=== PATIENT | female | born 1960 | race Caucasian/White ===

== ENCOUNTER → 2017-07-22 | Outpatient (CLI) | payer OTHER ==
[~2017-07-22] MED LIST: ALBUAER2 INH; DXY100 PO; PRED50TA PO
[2017-07-22 14:35] LABS: BLOOD UREA NITROGEN 20 mg/dl (7-18); BUN/CREATININE RATIO 18.8 (10-20); CALCIUM 8.9 mg/dl (8.5-10.1); CARBON DIOXIDE 25 mmol/L (21-32); CHLORIDE 107 mmol/L (98-107); CREATININE 1.06 mg/dl (0.60-1.20); GLUCOSE 86 mg/dl (70-99); POTASSIUM 4.5 mmol/L (3.5-5.1); SODIUM 140 mmol/L (136-145)
== END | disposition home or self-care (01) ==
LOC: C.LABPVFM 09:18
PROVIDERS: ATTEND Nurse Practitioner
DX: E03.9 Hypothyroidism, unspecified (principal)

== ENCOUNTER 2022-04-30 05:34 | Observation (INO) ==
[2022-04-30] MEDS ORDERED: NALOXONE HCL 0.4 MG/1 ML VIAL/CARP IV STA (05:42)
[2022-04-30] MEDS ORDERED: SODIUM CHLORIDE 0.9% 1000ML 1,000 ML IV SCH (05:45)
[2022-04-30 06:19] LABS: Hematocrit (blood only) 38.2 % (34.1-44.9); Hemoglobin 12.9 g/dl (12.0-16.0); Mean Corpuscular Hemoglobin 32.3 pg (25.0-34.0); Mean Corpuscular Hgb Conc 33.8 g/dL (32.0-36.0); Mean Corpuscular Volume 95.7 fL (80.0-100.0); RDW Coefficient of Variation 13.4 % (11.5-14.5); RDW Standard Deviation 47.4 fL (36.4-46.3); Red Blood Count 3.99 M/uL (3.93-5.22); White Blood Count 3.64 K/ul (4.8-10.8)
[2022-04-30 06:38] LABS: Mean Platelet Volume 13.2 fL (9.4-12.3); Platelet Count 141 K/uL (130-400)
[2022-04-30] MEDS ORDERED: ONDANSETRON INJ 2 MG/ML 2 ML VIAL IV STA (06:40)
[2022-04-30 06:51] LABS: Troponin I High Sensitivity 14.3 pg/ml (0-14)
[2022-04-30 06:52] LABS: Appearance Urine Cloudy (Clear); Bacteria Urine Automated 1+ (Negative); Bilirubin Urine 1+ (Negative); Blood Urine Negative (Negative); Color Urine Dark Yellow; Epithelial Cell Urine Auto >30 /lpf (0-5); Glucose Urine UA Negative (Negative); Ketones Urine Trace (Negative); Leukocyte Esterase Urine 1+ (Negative); Nitrite Urine Negative (Negative); Protein Urine 1+ (Negative); Specific Gravity Urine 1.017 (1.000-1.030); Urobilinogen Urine Negative (Negative)
[2022-04-30 06:58] LABS: Albumin Globulin Ratio 1.3 (0.9-2); Albumin Level 3.5 gm/dl (3.4-5.0); BUN Creatinine Ratio 13.6 (10-20); Bilirubin,Total 0.2 mg/dl (0.2-1.0); Calcium 8.1 mg/dl (8.5-10.1); Creatinine Clr Calc Pharmacy 42.7 ml/min; Est GFR (African American) 49.6 ml/min; Est GFR (Non-African American) 42.8 ml/min; Globulin 2.6 gm/dl (2.5-4.0); Magnesium 1.7 mg/dl (1.7-2.4); Potassium 3.7 mmol/L (3.5-5.1); Total Protein 6.1 gm/dl (6.0-8.3)
[2022-04-30 06:58] LABS: RBC Urine Automated 0-4 /hpf (0-4)
--- NOTE | 2022-04-30 06:58 | CT Scan Report ---
CT OF THE HEAD WITHOUT CONTRAST CLINICAL HISTORY: Altered mental status. COMPARISON STUDY: No previous studies for comparison. CT DOSE: 537.48 mGy.cm TECHNIQUE: Helical axial images of the head were obtained without IV contrast. Automated exposure con trol was utilized for the study. A dose lowering technique was utilized adhering to the principles o f ALARA. FINDINGS: No acute intracranial hemorrhage, midline shift or mass effect is present. White matter hyp odensities suggest small vessel disease. The ventricular system is unremarkable. The basal cisterns a re patent. No extra-axial collections are present. There are no findings to suggest acute dural sinus thrombosis or acute territorial infarct. No significant calvarial abnormalities are present. Visuali zed portions of the sinuses and mastoid air cells are clear. IMPRESSION: No acute intracranial findings. ACT 112: Negative or not required by law. Electronically signed by: Audie Galindo M.D. 04/30/2022 6:56 AM
--- NOTE | 2022-04-30 07:00 | XRay Report ---
XR chest 1V portable CLINICAL HISTORY: weakness TECHNIQUE: Single frontal radiograph of the chest was obtained. Comparison: Comparison is made to chest radiograph 08/18/2018 FINDINGS: No lines and tubes are seen. The cardiomediastinal silhouette is normal. The lungs are clear. No evid ence of pleural effusion or pneumothorax. Scoliosis is noted. IMPRESSION: No acute chest disease. ACT 112: Negative or not required by law. Electronically signed by: Thuan Salzaar M.D. 04/30/2022 6:59 AM
[2022-04-30 07:21] LABS: Basophils # (auto) 0.02 K/uL (0-0.2); Basophils % (auto) 0.5 %; Eosinophils # (auto) 0.02 K/uL (0-0.50); Eosinophils % (auto) 0.5 %; Immature Granulocytes # (auto) 0.01 K/uL (0.00-0.02); Immature Granulocytes % (auto) 0.3 %; Lymphocytes # (auto) 0.66 K/uL (1.2-3.4); Lymphocytes % (auto) 18.1 %; Neutrophils # (auto) 2.53 K/uL (1.4-6.5); Neutrophils % (auto) 69.6 %
[2022-04-30 07:27] LABS: Amphetamines+Metham, Urine Neg (Neg); Barbiturates, Urine Neg (Neg); Benzodiazepine, Urine Neg (Neg); Cocaine, Urine Neg (Neg); MDMA (Ecstacy), Urine Neg (Neg); Methadone, Urine Neg (Neg); Opiate, Urine Neg (Neg); Phencyclidine, Urine Neg (Neg)
--- NOTE | 2022-04-30 07:45 | History & Physical Report ---
Date of Service April 30, 2022 Assessment & Plan (1) Metabolic encephalopathy: Plan: Patient presented with decreased alertness altered mental status likely secondary to enteritis from COVID infection. Patient was given a liter of crystalloid in the emergency department she will be continued on IV fluids at least for another liter. Initially hypothermic supported by Reina gaviria. Patient does have an abnormal urinalysis on presentation this could be a urinary tract infection causing metabolic encephalopathy on top of COVID infection causing encephalopathy wait for urine culture (2) Lab test positive for detection of COVID-19 virus: Plan: Patient does not exhibit signs of COVID-pneumonia she however is hypoxic on presentation. She does have a significant smoking history of at least 40 pack years and chest x-ray changes consistent with likely COPD. We will initiate dexamethasone, and if hypoxia persistes will start remdesivir (3) Elevated troponin: Plan: Patient's troponin only mildly above the upper limits of normal EKGs without acute changes we will repeat high-sensitivity troponin and make further decisions based on that (4) Enteritis: Plan: Nausea vomiting diarrhea have resolved at this point time. If the diarrhea does occur we will do a stool PCR test for infectious etiologies although this likely may be viral in nature. 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 She is reportedly vomiting into a trash can. She reportedly had diarrhea throughout the day. Patient was brought to the emergency department where she was resuscitated. She was poorly altered on presentation however initial evaluation includes negative CT scan chest x-ray EKG. Temperature was low on presentation, serology only shows mild decrease in white count mild elevation of troponin and an abnormal urinalysis. Tox screen is pending. Patient is COVID-positive however she is not had any cough upper respiratory symptoms loss of taste or smell and she is only been having her GI issues at the present time Patient was responsive upon my interview. She says she is only been ill for 1 day. She works with the public but lives by herself. She has not been vaccinated for COVID. She does not have any health maintenance only takes thyroid medication and that is the only reason she sees her family doctor. Primary Care Provider: YAEL Edwards Allergies Allergy/AdvReac Type Severity Reaction Status Date / Time Penicillins Allergy Unknown Rash Verified 07/15/21 07:23 Cephalosporins AdvReac Unknown Rash Verified 07/15/21 07:23 Home Medications Medication Instructions Recorded Confirmed Type levothyroxine 125 mcg tablet 125 mcg PO DAILY 04/30/22 04/30/22 History Past Med/Surg History Medical History Anxiety Chronic low back pain Depression Elevated blood-pressure reading without diagnosis of hypertension Grief reaction Hypothyroid Primary hypothyroidism Umbilical hernia Surgical History History of bilateral tubal ligation History of umbilical hernia repair Status post proximal row carpectomy of wrist Family History Father Diabetes Kidney disease Mother Gallbladder disease Hypertension Denies family history of Ovarian cancer Prostate cancer Myocardial infarction Breast cancer Social History Smoking Status: Current every day smoker Tobacco Type: Cigarettes Cigarettes Per Day: half pack/day; Second Hand Exposure: No; Do You Dip or Chew Tobacco: No; Hx Alcohol Use: No Hx Substance Use: No Preferred Language: Kyrgyz Communication Ability: Effective Gift Shop 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 Required: No Beliefs That Will Affect Care: None marital status: Single Current Living Situation: Family Current Living Situation Comment: Daughter current occupational status: employed Other Information That Helps Us Care for You: No Feels Safe at Home: Yes Safety Concerns: Feels Safe At This Time Dental Care, Regularly: No Assistive Devices: Denture - Upper and Glasses Review of Systems Review of Systems: Moderate distress and fatigue no headache, no visual changes no speech or swallowing issues no chest pain, pressure or palpitations no shortness of breath, cough or wheezes no abdominal pain, has had nausea vomiting and diarrhea Denies dysuria, hematuria or frequency no focal joint pain or swelling no back pain, CVA tenderness or radicular pain no bruising, bleeding or rashes no focal signs of weakness or numbness or altered sensation no complaints of anxiety or depression.. Physical Exam Physical Exam: The patient appeared well nourished and normally developed. Vital signs as documented. Head exam is normocephalic atraumatic Neck is without JVD, thyromegaly, or carotid bruits. Lungs are clear to auscultation, no focal loss of breath sounds Cardiac exam, Rhythm is regular.. No murmurs, rubs or gallops. Abdominal exam reveals normal bowel sounds, soft non tender, no masses Extremities are nonedematous and both pedal pulses are present Neurologic exam is alert and oriented, no focal loss of strength or sensation Skin is without bruises or rashes Psychologically is without concerns for anxiety or depression.. Results & Data Results & Data ([facility]) Vital Signs (Past 12 Hours) Vital Signs Temp Pulse Pulse Resp BP BP Pulse Ox 04/30/22 07:20 52 L 18 98 04/30/22 07:15 147/78 H 04/30/22 07:15 52 L 14 97 04/30/22 07:10 56 L 15 100 04/30/22 07:00 52 L 19 98 04/30/22 07:00 149/79 H 04/30/22 06:50 52 L 19 97 04/30/22 06:45 52 L 17 98 04/30/22 06:45 143/73 H 04/30/22 06:43 53 L 18 134/75 98 04/30/22 05:57 96.8 F L 53 L 14 105/62 87 L 04/30/22 06:05 87 L 04/30/22 06:05 55 L 17 87 L O2 Del Method O2 Flow Rate 04/30/22 07:20 Nasal Cannula 2 04/30/22 07:15 04/30/22 07:15 Nasal Cannula 2 04/30/22 07:10 Nasal Cannula 2 04/30/22 07:00 Nasal Cannula 2 04/30/22 07:00 04/30/22 06:50 Nasal Cannula 4 04/30/22 06:45 Nasal Cannula 4 04/30/22 06:45 04/30/22 06:43 Nasal Cannula 3 04/30/22 05:57 Room Air 04/30/22 06:05 Room Air 0 04/30/22 06:05 Room Air Diagnostic Findings Chest X-Ray 04/30/22 05:41 XR chest 1V portable CLINICAL HISTORY: weakness TECHNIQUE: Single frontal radiograph of the chest was obtained. Comparison: Comparison is made to chest radiograph 08/18/2018 FINDINGS: No lines and tubes are seen. The cardiomediastinal silhouette is normal. The lungs are clear. No evidence of pleural effusion or pneumothorax. Scoliosis is noted. IMPRESSION: No acute chest disease. Electronically signed by: Thuan Salazar M.D. 04/30/2022 6:[address] 04/30/22 05:41 CT OF THE HEAD WITHOUT CONTRAST CLINICAL HISTORY: Altered mental status. COMPARISON STUDY: No previous studies for comparison. CT DOSE: 537.48 mGy.cm TECHNIQUE: Helical axial images of the head were obtained without IV contrast. Automated exposure control was utilized for the study. A dose lowering technique was utilized adhering to the principles of ALARA. FINDINGS: No acute intracranial hemorrhage, midline shift or mass effect is present. White matter hypodensities suggest small vessel disease. The ventricular system is unremarkable. The basal cisterns are patent. No extra- axial collections are present. There are no findings to suggest acute dural sinus thrombosis or acute territorial infarct. No significant calvarial abnormalities are present. Visualized portions of the sinuses and mastoid air cells are clear. IMPRESSION: No acute intracranial findings. Electronically signed by: Audie Galindo M.D. 04/30/2022 6:56 AM PG Care Time/CCT Total # of Minutes Spent Total Time Spent with Patient: Total time spent is greater than 50% in coordination of care (as documented) at patient's floor/unit and/or counseling patient: Coding Level of Care Code INT OBSERVATION CARE 70M LVL 3 Diagnoses Metabolic encephalopathy G93.41 Lab test positive for detection of COVID-19 virus U07.1 Elevated troponin R77.8 Enteritis K52.9 Primary hypothyroidism E03.9 DVT prophylaxis Z29.9
--- NOTE | 2022-04-30 07:51 | Emergency Department Note ---
Impression & Plan Unresponsive episode, Altered mental status, COVID-19 ED Provider Note CHIEF COMPLAINT: AMS, found unresponsive HISTORY OF PRESENT ILLNESS: This 61 yo female patient presents to the emergency department by EMS after being found unresponsive at work this morning. 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 The patient apparently had vomited and urinated. She states she has no close family members available, a daughter is questionably incarcerated. The patient is able to answer most questions. She denies any recent head injuries, fevers, visual changes. She has not had any chest pain or palpitations. Patient does smoke cigarettes but denies any alcohol or marijuana. REVIEW OF SYSTEMS: A review of systems was performed with positives and pertinent negatives listed in the history of present illness. 10 systems were reviewed and are otherwise negative. ALLERGIES: see below MEDICATIONS: see below PMH: see below SOCIAL HISTORY: see below DDx: Infection, dehydration, metabolic abnormality, hypo/hyperglycemia, electrolyte disturbance, anemia, hypoxia, cardiac sources, intracerebral event, toxicologic, neurologic, as well as other pathologies. PHYSICAL EXAM: Vital signs reviewed. General: Chronically ill-appearing 61-year-old female, in no significant distress. Appears older than stated age HEENT: No scleral icterus, PERRLA, neck supple. Atraumatic. Dry mucous membranes. Cardiovascular: Bradycardic but regular, no extra sounds Pulmonary: Clear to auscultation bilaterally, normal work of breathing. Abdomen: Soft, nontender, nondistended, positive bowel sounds. Musculoskeletal: Atraumatic, no peripheral edema. Neurologic: Patient is somnolent but arousable. Speech is clear but patient falls asleep quickly. Follows simple commands. Skin: Warm, dry, no rash EMERGENCY DEPARTMENT COURSE/MDM: This patient was evaluated and appeared to be in no significant distress. The patient required some supplemental nasal cannula oxygen. She was placed on the monitoring and evaluation advisor. Her mental status did seem to improve during her several hours in the emergency department. IV hydration was initiated and the patient was given 4 mg of IV Zofran and 0.4 mg of IV Narcan. CT imaging of the head was performed and is negative. Laboratory work is fairly reassuring with the exception of a positive COVID test. Urinalysis is likely contaminated and not infected. Urine tox screen is negative. Chest x-ray is consistent with COPD but no focal infiltrate is observ ed. Patient was placed under the [facility] temperature of 36.0 and she was discussed with hospitalist service will evaluate the patient for admission and further management. MONITORING: An order for cardiac monitoring was placed and the patient is noted to be in a sinus bradycardia at 52 beats per minute. RADIOLOGY: See below EKG: Sinus bradycardia at 52 bpm. 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 QTC is 457. No PVC, no PAC. DISPOSITION: Admission I have personally spent 30 minutes of critical care time in the direct management of this patient. This was a life/limb threatening event. This 30 minutes is in excess of all separately billable procedures. Past Med/Surg History Medical History Anxiety Chronic low back pain Depression Elevated blood-pressure reading without diagnosis of hypertension Grief reaction Hypothyroid Primary hypothyroidism Umbilical hernia Surgical History History of bilateral tubal ligation History of umbilical hernia repair Status post proximal row carpectomy of wrist Family History Father Diabetes Kidney disease Mother Gallbladder disease Hypertension Denies family history of Ovarian cancer Prostate cancer Myocardial infarction Breast cancer Social History Smoking Status: Current every day smoker Tobacco Type: Cigarettes Cigarettes Per Day: half pack/day; Second Hand Exposure: No; Hx Alcohol Use: No Hx Substance Use: No Preferred Language: [place] Communication Ability: Effective Strategic Marketing Manager Required: No Beliefs That Will Affect Care: None marital status: Single Current Living Situation: Family Current Living Situation Comment: Daughter current occupational status: employed How many Children do You have: 1 Feels Safe at Home: Yes Dental Care, Regularly: No Assistive Devices: None Allergies Allergies Allergy/AdvReac Type Severity Reaction Status Date / Time Penicillins Allergy Unknown Rash Verified 07/15/21 07:23 Cephalosporins AdvReac Unknown Rash Verified 07/15/21 07:23 Home Meds Home Medications Medication Instructions Recorded Confirmed levothyroxine 125 mcg tablet 125 mcg PO DAILY 04/30/22 04/30/22 Previous Rx's Medication Instructions Recorded ciprofloxacin HCl 500 mg tablet 500 mg PO BID #10 tabs 05/02/22 (Cipro) dexamethasone 6 mg tablet 6 mg PO DAILY #5 Tabs 05/02/22 Results & Data (ED) Vital Signs Vital Signs - 24 hr 04/30/22 06:05 04/30/22 06:05 04/30/22 05:57 Temperature 36.0 C L Temperature Source Rectal Pulse Rate 55 L 53 L Pulse Rate [Apical] Pulse Rhythm Regular Regular Pulse Rhythm [Apical] Pulse Strength Normal Pulse Strength [Apical] Respiratory Rate 17 14 Respiratory Effort / Characteristics Non-Labored Spontaneous Respiratory Depth Normal Respiratory Pattern Regular Blood Pressure 105/62 Blood Pressure [Left Arm] Blood Pressure Mean 76 Blood Pressure Mean [Left Arm] Blood Pressure Position Lying Blood Pressure Position [Left Arm] Pulse Oximetry 87 L 87 L 87 L Oxygen Delivery Method Room Air Room Air Room Air Oxygen Flow Rate 0 Sepsis Recent Fever Within 48 Hours No Sepsis New/Unexplained Change in Mental Status Yes Sepsis Action Taken by Nursing No Action Required Oxygen Flow Rate - Titration 4 Pulse Oximetry Post Tiitration 94 04/30/22 06:43 04/30/22 06:45 04/30/22 06:45 Temperature Temperature Source Pulse Rate 52 L Pulse Rate [Apical] 53 L Pulse Rhythm Pulse Rhythm [Apical] Regular Pulse Strength Pulse Strength [Apical] Normal Respiratory Rate 18 17 Respiratory Effort / Characteristics Non-Labored Spontaneous Respiratory Depth Normal Respiratory Pattern Regular Blood Pressure 143/73 H Blood Pressure [Left Arm] 134/75 Blood Pressure Mean 96 Blood Pressure Mean [Left Arm] 94 Blood Pressure Position Blood Pressure Position [Left Arm] Lying Pulse Oximetry 98 98 Oxygen Delivery Method Nasal Cannula Nasal Cannula Oxygen Flow Rate 3 4 Sepsis Recent Fever Within 48 Hours Sepsis New/Unexplained Change in Mental Status Sepsis Action Taken by Nursing Oxygen Flow Rate - Titration Pulse Oximetry Post Tiitration 04/30/22 06:50 04/30/22 07:00 04/30/22 07:00 Temperature Temperature Source Pulse Rate 52 L 52 L Pulse Rate [Apical] Pulse Rhythm Pulse Rhythm [Apical] Pulse Strength Pulse Strength [Apical] Respiratory Rate 19 19 Respiratory Effort / Characteristics Respiratory Depth Respiratory Pattern Blood Pressure 149/79 H Blood Pressure [Left Arm] Blood Pressure Mean 102 Blood Pressure Mean [Left Arm] Blood Pressure Position Blood Pressure Position [Left Arm] Pulse Oximetry 97 98 Oxygen Delivery Method Nasal Cannula Nasal Cannula Oxygen Flow Rate 4 2 Sepsis Recent Fever Within 48 Hours Sepsis New/Unexplained Change in Mental Status Sepsis Action Taken by Nursing Oxygen Flow Rate - Titration Pulse Oximetry Post Tiitration 04/30/22 07:10 04/30/22 07:15 04/30/22 07:15 Temperature Temperature Source Pulse Rate 56 L 52 L Pulse Rate [Apical] Pulse Rhythm Pulse Rhythm [Apical] Pulse Strength Pulse Strength [Apical] Respiratory Rate 15 14 Respiratory Effort / Characteristics Respiratory Depth Respiratory Pattern Blood Pressure 147/78 H Blood Pressure [Left Arm] Blood Pressure Mean 101 Blood Pressure Mean [Left Arm] Blood Pressure Position Blood Pressure Position [Left Arm] Pulse Oximetry 100 97 Oxygen Delivery Method Nasal Cannula Nasal Cannula Oxygen Flow Rate 2 2 Sepsis Recent Fever Within 48 Hours Sepsis New/Unexplained Change in Mental Status Sepsis Action Taken by Nursing Oxygen Flow Rate - Titration Pulse Oximetry Post Tiitration 04/30/22 07:20 Temperature Temperature Source Pulse Rate 52 L Pulse Rate [Apical] Pulse Rhythm Pulse Rhythm [Apical] Pulse Strength Pulse Strength [Apical] Respiratory Rate 18 Respiratory Effort / Characteristics Respiratory Depth Respiratory Pattern Blood Pressure Blood Pressure [Left Arm] Blood Pressure Mean Blood Pressure Mean [Left Arm] Blood Pressure Position Blood Pressure Position [Left Arm] Pulse Oximetry 98 Oxygen Delivery Method Nasal Cannula Oxygen Flow Rate 2 Sepsis Recent Fever Within 48 Hours Sepsis New/Unexplained Change in Mental Status Sepsis Action Taken by Nursing Oxygen Flow Rate - Titration Pulse Oximetry Post Tiitration Home Medications Current Medication List: was personally reviewed by me Laboratory Data Attestation: I reviewed the patient's lab results. Result diagrams: 05/02/22 06:09 05/02/22 06:09 Lab Results 04/30/22 04/30/22 04/30/22 Range/Units 05:52 05:56 05:56 WBC 3.64 L (4.8-10.8) K/ul RBC 3.99 (3.93-5.22) M/uL Hgb 12.9 (12.0-16.0) g/dl Hct 38.2 (34.1-44.9) % MCV 95.7 (80.0-100.0) fL MCH 32.3 (25.0-34.0) pg MCHC 33.8 (32.0-36.0) g/dL RDW Std Deviation 47.4 H (36.4-46.3) fL RDW Coeff of Lucy 13.4 (11.5-14.5) % Plt Count 141 (130-400) K/uL MPV 13.2 H (9.4-12.3) fL Immature Gran % (Auto) 0.3 % Neut % (Auto) 69.6 % Lymph % (Auto) 18.1 % [place] % (Auto) 11.0 % Eos % (Auto) 0.5 % Baso % (Auto) 0.5 % Neut # (Auto) 2.53 (1.4-6.5) K/uL Lymph # (Auto) 0.66 L (1.2-3.4) K/uL [place] # (Auto) 0.40 (0.24-0.82) K/uL Eos # (Auto) 0.02 (0-0.50) K/uL Baso # (Auto) 0.02 (0-0.2) K/uL Immature Gran # (Auto) 0.01 (0.00-0.02) K/uL Sodium 136 (136-145) mmol/L Potassium 3.7 (3.5-5.1) mmol/L Chloride 107 (98-107) mmol/L Carbon Dioxide 21 (21-32) mmol/L Anion Gap 8 (3-11) BUN 18 (6-23) mg/dl Creatinine 1.32 H (0.6-1.2) mg/dl Est Cr Clr Drug Dosing 42.7 ml/min Est GFR ( Amer) 49.6 ml/min Est GFR (Non-Af Amer) 42.8 ml/min BUN/Creatinine Ratio 13.6 (10-20) Glucose 126 H (70-99(Fasting)) mg/dl POC Glucose 104 H (70-99) mg/dl Calcium 8.1 L (8.5-10.1) mg/dl Magnesium 1.7 (1.7-2.4) mg/dl Total Bilirubin 0.2 (0.2-1.0) mg/dl AST 35 (13-39) U/L ALT 20 (7-52) U/L Alkaline Phosphatase 94 (34-104) U/L Troponin I High Sens 14.3 H (0-14) pg/ml Total Protein 6.1 (6.0-8.3) gm/dl Albumin 3.5 (3.4-5.0) gm/dl Globulin 2.6 (2.5-4.0) gm/dl Albumin/Globulin Ratio 1.3 (0.9-2) TSH (0.300-4.500) uIu/ml Urine Color Urine Appearance (Clear) Urine pH (4.5-7.5) Ur Specific [place] (1.000-1.030) Urine Protein (Negative) Urine Glucose (UA) (Negative) Urine Ketones (Negative) Urine Blood (Negative) Urine Nitrite (Negative) Urine Bilirubin (Negative) Urine Urobilinogen (Negative) Ur Leukocyte Esterase (Negative) Urine WBC (Auto) (0-5) /hpf Urine RBC (Auto) (0-4) /hpf U Hyaline Cast (Auto) (0-5) /lpf U Epithel Cells (Auto) (0-5) /lpf Urine Bacteria (Auto) (Negative) Ur Renal Epithelial Cell Urine Opiates Screen (Neg) Ur Methadone, Qual (Neg) Urine Barbiturates (Neg) Ur Phencyclidine (PCP) (Neg) U Amphetamin/Meth Scrn (Neg) MDMA (Ecstasy) Screen (Neg) U Benzodiazepines Scrn (Neg) Ur Cocaine Metabolite (Neg) U Marijuana (THC) Screen (Neg) SARS-CoV-2, RNA, NAAT (NEGATIVE) 04/30/22 04/30/22 04/30/22 Range/Units 05:56 06:27 06:27 WBC (4.8-10.8) K/ul RBC (3.93-5.22) M/uL Hgb (12.0-16.0) g/dl Hct (34.1-44.9) % MCV (80.0-100.0) fL MCH (25.0-34.0) pg MCHC (32.0-36.0) g/dL RDW Std Deviation (36.4-46.3) fL RDW Coeff of Lucy (11.5-14.5) % Plt Count (130-400) K/uL MPV (9.4-12.3) fL Immature Gran % (Auto) % Neut % (Auto) % Lymph % (Auto) % [place] % (Auto) % Eos % (Auto) % Baso % (Auto) % Neut # (Auto) (1.4-6.5) K/uL Lymph # (Auto) (1.2-3.4) K/uL [place] # (Auto) (0.24-0.82) K/uL Eos # (Auto) (0-0.50) K/uL Baso # (Auto) (0-0.2) K/uL Immature Gran # (Auto) (0.00-0.02) K/uL Sodium (136-145) mmol/L Potassium (3.5-5.1) mmol/L Chloride (98-107) mmol/L Carbon Dioxide (21-32) mmol/L Anion Gap (3-11) BUN (6-23) mg/dl Creatinine (0.6-1.2) mg/dl Est Cr Clr Drug Dosing ml/min Est GFR ( Amer) ml/min Est GFR (Non-Af Amer) ml/min BUN/Creatinine Ratio (10-20) Glucose (70-99(Fasting)) mg/dl POC Glucose (70-99) mg/dl Calcium (8.5-10.1) mg/dl Magnesium (1.7-2.4) mg/dl Total Bilirubin (0.2-1.0) mg/dl AST (13-39) U/L ALT (7-52) U/L Alkaline Phosphatase (34-104) U/L Troponin I High Sens (0-14) pg/ml Total Protein (6.0-8.3) gm/dl Albumin (3.4-5.0) gm/dl Globulin (2.5-4.0) gm/dl Albumin/Globulin Ratio (0.9-2) TSH 0.305 (0.300-4.500) uIu/ml Urine Color Dark Yellow Urine Appearance Cloudy A (Clear) Urine pH 6.0 (4.5-7.5) Ur Specific [place] 1.017 (1.000-1.030) Urine Protein 1+ H (Negative) Urine Glucose (UA) Negative (Negative) Urine Ketones Trace H (Negative) Urine Blood Negative (Negative) Urine Nitrite Negative (Negative) Urine Bilirubin 1+ H (Negative) Urine Urobilinogen Negative (Negative) Ur Leukocyte Esterase 1+ H (Negative) Urine WBC (Auto) 10-30 H (0-5) /hpf Urine RBC (Auto) 0-4 (0-4) /hpf U Hyaline Cast (Auto) 1-5 (0-5) /lpf U Epithel Cells (Auto) >30 H (0-5) /lpf Urine Bacteria (Auto) 1+ H (Negative) Ur Renal Epithelial Cell Not Reportable Urine Opiates Screen Neg (Neg) Ur Methadone, Qual Neg (Neg) Urine Barbiturates Neg (Neg) Ur Phencyclidine (PCP) Neg (Neg) U Amphetamin/Meth Scrn Neg (Neg) MDMA (Ecstasy) Screen Neg (Neg) U Benzodiazepines Scrn Neg (Neg) Ur Cocaine Metabolite Neg (Neg) U Marijuana (THC) Screen Neg (Neg) SARS-CoV-2, RNA, NAAT (NEGATIVE) 04/30/22 Range/Units 06:35 WBC (4.8-10.8) K/ul RBC (3.93-5.22) M/uL Hgb (12.0-16.0) g/dl Hct (34.1-44.9) % MCV (80.0-100.0) fL MCH (25.0-34.0) pg MCHC (32.0-36.0) g/dL RDW Std Deviation (36.4-46.3) fL RDW Coeff of Lucy (11.5-14.5) % Plt Count (130-400) K/uL MPV (9.4-12.3) fL Immature Gran % (Auto) % Neut % (Auto) % Lymph % (Auto) % [place] % (Auto) % Eos % (Auto) % Baso % (Auto) % Neut # (Auto) (1.4-6.5) K/uL Lymph # (Auto) (1.2-3.4) K/uL [place] # (Auto) (0.24-0.82) K/uL Eos # (Auto) (0-0.50) K/uL Baso # (Auto) (0-0.2) K/uL Immature Gran # (Auto) (0.00-0.02) K/uL Sodium (136-145) mmol/L Potassium (3.5-5.1) mmol/L Chloride (98-107) mmol/L Carbon Dioxide (21-32) mmol/L Anion Gap (3-11) BUN (6-23) mg/dl Creatinine (0.6-1.2) mg/dl Est Cr Clr Drug Dosing ml/min Est GFR ( Amer) ml/min Est GFR (Non-Af Amer) ml/min BUN/Creatinine Ratio (10-20) Glucose (70-99(Fasting)) mg/dl POC Glucose (70-99) mg/dl Calcium (8.5-10.1) mg/dl Magnesium (1.7-2.4) mg/dl Total Bilirubin (0.2-1.0) mg/dl AST (13-39) U/L ALT (7-52) U/L Alkaline Phosphatase (34-104) U/L Troponin I High Sens (0-14) pg/ml Total Protein (6.0-8.3) gm/dl Albumin (3.4-5.0) gm/dl Globulin (2.5-4.0) gm/dl Albumin/Globulin Ratio (0.9-2) TSH (0.300-4.500) uIu/ml Urine Color Urine Appearance (Clear) Urine pH (4.5-7.5) Ur Specific [place] (1.000-1.030) Urine Protein (Negative) Urine Glucose (UA) (Negative) Urine Ketones (Negative) Urine Blood (Negative) Urine Nitrite (Negative) Urine Bilirubin (Negative) Urine Urobilinogen (Negative) Ur Leukocyte Esterase (Negative) Urine WBC (Auto) (0-5) /hpf Urine RBC (Auto) (0-4) /hpf U Hyaline Cast (Auto) (0-5) /lpf U Epithel Cells (Auto) (0-5) /lpf Urine Bacteria (Auto) (Negative) Ur Renal Epithelial Cell Urine Opiates Screen (Neg) Ur Methadone, Qual (Neg) Urine Barbiturates (Neg) Ur Phencyclidine (PCP) (Neg) U Amphetamin/Meth Scrn (Neg) MDMA (Ecstasy) Screen (Neg) U Benzodiazepines Scrn (Neg) Ur Cocaine Metabolite (Neg) U Marijuana (THC) Screen (Neg) SARS-CoV-2, RNA, NAAT POSITIVE A* (NEGATIVE) Administered Medications Discontinued Medications Enoxaparin Sodium (Enoxaparin Inj 40 Mg/0.4 Ml Syr) 40 mg SQ Q24H LEONARDO Stop: 05/30/22 09:02 Last Admin: 05/02/22 09:30 Dose: 40 mg Documented By: Admin: 05/01/22 10:48 Dose: 40 mg Documented By: Admin: 04/30/22 10:55 Dose: 40 mg Documented By: BRITTANIE Sodium Chloride (Nss 1000ml) 1,000 mls @ 999 mls/hr IV .Q1H1M LEONARDO Stop: 04/30/22 06:45 Last Infusion: 04/30/22 08:04 Dose: 0 mls/hr Documented By: Admin: 04/30/22 06:28 Dose: 999 mls/hr Documented By: RANULFO Dexamethasone 6 mg/ Syringe 1.5 mls @ 1 mls/min IV Q24H LEONARDO Stop: 05/30/22 09:02 Last Admin: 05/02/22 09:30 Dose: 1 mls/min Documented By: Admin: 05/01/22 10:08 Dose: 1 mls/min Documented By: Admin: 04/30/22 10:09 Dose: 1 mls/min Documented By: BRITTANIE Parenteral Electrolytes (Normosol-R) 1,000 mls @ 100 mls/hr IV .Q10H LEONARDO Stop: 04/30/22 19:59 Last Infusion: 04/30/22 20:45 Dose: 0 mls/hr Documented By: Admin: 04/30/22 10:09 Dose: 100 mls/hr Documented By: BRITTANIE Magnesium Sulfate/Dextrose (Magnesium Sulfate / D5w) 1 gm in 100 mls @ 50 mls/hr IV Q2H LEONARDO Stop: 05/01/22 12:14 Last Infusion: 05/01/22 14:33 Dose: 0 mls/hr Documented By: Admin: 05/01/22 12:10 Dose: 50 mls/hr Documented By: Infusion: 05/01/22 12:10 Dose: 50 mls/hr Documented By: Admin: 05/01/22 10:14 Dose: 50 mls/hr Documented By: QUINCY Ciprofloxacin (Cipro / D5w) 400 mg in 200 mls @ 100 mls/hr IV Q12H LEONARDO; Protocol Stop: 05/06/22 08:59 Last Infusion: 05/02/22 11:42 Dose: 0 mls/hr Documented By: Admin: 05/02/22 09:42 Dose: 100 mls/hr Documented By: Infusion: 05/01/22 22:10 Dose: 0 mls/hr Documented By: Admin: 05/01/22 20:08 Dose: 100 mls/hr Documented By: Infusion: 05/01/22 12:42 Dose: 0 mls/hr Documented By: Admin: 05/01/22 10:11 Dose: 100 mls/hr Documented By: QUINCY Levothyroxine Sodium (Levothyroxine Sodium 125 Mcg Tablet) 125 mcg PO DAILYBB LEONARDO Stop: 05/30/22 09:59 Last Admin: 05/02/22 05:28 Dose: 125 mcg Documented By: Admin: 05/01/22 06:14 Dose: 125 mcg Documented By: Admin: 04/30/22 10:43 Dose: Not Given Documented By: BRITTANIE Naloxone HCl (Naloxone Hcl 0.4 Mg/1 Ml Vial/Carp) 0.4 mg IV NOW STA Stop: 04/30/22 05:43 Last Admin: 04/30/22 06:28 Dose: 0.4 mg Documented By: RANULFO Ondansetron HCl (Ondansetron Inj 2 Mg/Ml 2 Ml Vial) 4 mg IV NOW STA Stop: 04/30/22 06:41 Last Admin: 04/30/22 06:47 Dose: 4 mg Documented By: RANULFO Imaging Data Radiologist's Impression: Chest X-Ray 04/30/22 05:41 XR chest 1V portable CLINICAL HISTORY: weakness TECHNIQUE: Single frontal radiograph of the chest was obtained. Comparison: Comparison is made to chest radiograph 08/18/2018 FINDINGS: No lines and tubes are seen. The cardiomediastinal silhouette is normal. The lungs are clear. No evidence of pleural effusion or pneumothorax. Scoliosis is n oted. IMPRESSION: No acute chest disease. ACT 112: Negative or not required by law. Electronically signed by: Thuan Salazar M.D. 04/30/2022 6:[address] 04/30/22 05:41 CT OF THE HEAD WITHOUT CONTRAST CLINICAL HISTORY: Altered mental status. COMPARISON STUDY: No previous studies for comparison. CT DOSE: 537.48 mGy.cm TECHNIQUE: Helical axial images of the head were obtained without IV contrast. Automated exposure control was utilized for the study. A dose lowering technique was utilized adhering to the principles of ALARA. FINDINGS: No acute intracranial hemorrhage, midline shift or mass effect is present. White matter hypodensities suggest small vessel disease. The ventricular system is unremarkable. The basal cisterns are patent. No extra- axial collections are present. There are no findings to suggest acute dural sinus thrombosis or acute territorial infarct. No significant calvarial abnormalities are present. Visualized portions of the sinuses and mastoid air cells are clear. IMPRESSION: No acute intracranial findings. ACT 112: Negative or not required by law. Electronically signed by: Audie Galindo M.D. 04/30/2022 6:56 AM Blood Pressure Blood Pressure Findings: Elevated blood pressure Blood Pressure Disposition: further management by hospitalist Discharge Plan Visit Data Chief Complaint: Unresponsive Stated Complaint: HYPERTENSION/UNRESPONSIVE/INCONTINENT ED Provider: Elda Melgar Discharge Problem: Unresponsive episode, Altered mental status, COVID-19 Patient Disposition: Admitted As Inpatient Condition: Fair Discharge Instructions Interventions: ED Discharge Assessment Last Done: 04/30/22 08:12
[2022-04-30] MEDS ORDERED: ONDANSETRON INJ 2 MG/ML 2 ML VIAL IV PRN (09:03)
[2022-04-30] MEDS ORDERED: ACETAMINOPHEN 500 MG TAB PO PRN (09:03)
[2022-04-30] MEDS ORDERED: NORMOSOL-R 1,000 ML IV SCH (10:00)
[2022-04-30] MEDS: dexAMETHasone 6 MG in SYRINGE 0 ML IV SCH (10:09)
[2022-04-30] MEDS: LEVOTHYROXINE SODIUM 125 MCG TABLET PO SCH (10:43)
[2022-04-30] MEDS: ENOXAPARIN INJ 40 MG/0.4 ML SYR SQ SCH (10:55)
--- NOTE | 2022-04-30 16:38 | Electrocardiogram Report ---
Test Reason : Blood Pressure : / mmHG Vent. Rate : 052 BPM Atrial Rate : 052 BPM P-R Int : 160 ms QRS Dur : 106 ms QT Int : 492 ms P-R-T Axes : 078 076 051 degrees QTc Int : 457 ms Sinus bradycardia Nondiagnostic inferior Q waves Abnormal ECG When compared with ECG of 18-AUG-2018 13:56, No significant change was found Confirmed by Ambrose Mays ([id number]) on 04/30/2022 4:38:03 PM Referred By: REFERRED SELF Confirmed By:Ambrose Mays
[2022-05-01] MEDS: LEVOTHYROXINE SODIUM 125 MCG TABLET PO SCH (06:14)
[2022-05-01 07:40] LABS: Anion Gap 4 (3-11); BUN Creatinine Ratio 18.1 (10-20); Blood Urea Nitrogen 15 mg/dl (6-23); C Reactive Protein < 0.50 mg/dl (0-0.5); Calcium 8.2 mg/dl (8.5-10.1); Carbon Dioxide 25 mmol/L (21-32); Chloride 107 mmol/L (98-107); Creatinine Clr Calc Pharmacy 62.4 ml/min; Glucose 84 mg/dl (70-99(Fasting)); Magnesium 1.6 mg/dl (1.7-2.4); Potassium 4.5 mmol/L (3.5-5.1); Sodium 136 mmol/L (136-145)
[2022-05-01 07:49] LABS: Hematocrit (blood only) 38.3 % (34.1-44.9); Hemoglobin 12.8 g/dl (12.0-16.0); Mean Corpuscular Hemoglobin 31.8 pg (25.0-34.0); Mean Corpuscular Hgb Conc 33.4 g/dL (32.0-36.0); RDW Coefficient of Variation 13.5 % (11.5-14.5); Red Blood Count 4.03 M/uL (3.93-5.22); White Blood Count 3.85 K/ul (4.8-10.8)
[2022-05-01 07:55] LABS: Mean Platelet Volume 13.5 fL (9.4-12.3); Platelet Count 142 K/uL (130-400)
--- NOTE | 2022-05-01 08:13 | Hospitalist Progress Note ---
Date of Service May 01, 2022 Assessment & Plan (1) Metabolic encephalopathy: Plan: Patient presented with decreased alertness altered mental status likely secondary to enteritis from COVID infection. volume resusitated in ER. Initially hypothermic supported by Reina gaviria. Patient urinalysis gram negative >100,000, causing metabolic encephalopathy on top of COVID infection causing encephalopathy (2) Lab test positive for detection of COVID-19 virus: Plan: Patient does not exhibit signs of COVID-pneumonia she however is hypoxic on presentation. She does have a significant smoking history of at least 40 pack years and chest x-ray changes consistent with likely COPD. did initiate dexamethasone, no further hypoxia and did not start remdesivir (3) Elevated troponin: Plan: Patient's troponin only mildly above the upper limits of normal EKGs without acute changes repeat high-sensitivity troponin normal (4) Enteritis: Plan: Nausea vomiting diarrhea have resolved at this point time. If the diarrhea does occur we will do a stool PCR test for infectious etiologies although this likely may be viral in nature. Supportive care (5) Primary hypothyroidism: Plan: Continue her home Synthroid, TSH check on presentation was at the lower limits of normal (6) DVT prophylaxis: Plan: Enoxaparin for DVT prevention Admission and Anticipated Discharge Date Admission Date: April 30, 2022 Subjective pt feels improved still with extreme fatigue, some dysuria corroborates her concurrent UTI Review of Systems Review of Systems: lessening distress and fatigue no headache, no visual changes no speech or swallowing issues no chest pain, pressure or palpitations no shortness of breath, cough or wheezes no abdominal pain, no additional nausea vomiting or diarrhea no c/o dysuria, no hematuria or frequency no focal joint pain or swelling no back pain, CVA tenderness or radicular pain no bruising, bleeding or rashes no focal signs of weakness or numbness or altered sensation no complaints of anxiety or depression.. Physical Exam Physical Exam: The patient appeared well nourished and normally developed. she appears fatigued and tired Vital signs as documented. Head exam is normocephalic atraumatic Neck is without JVD, thyromegaly, or carotid bruits. Lungs are clear to auscultation, no focal loss of breath sounds Cardiac exam, Rhythm is regular.. No murmurs, rubs or gallops. Abdominal exam reveals normal bowel sounds, soft non tender, no masses Extremities are nonedematous and both pedal pulses are present Neurologic exam is alert and oriented, no focal loss of strength or sensation Skin is without bruises or rashes Psychologically is without concerns for anxiety or depression.. Results & Data Results & Data ([facility]) Vital Signs (Past 12 Hours) Vital Signs Temp Pulse Pulse Resp BP Pulse Ox O2 Del Method 05/01/22 03:57 97.7 F 49 L 18 164/82 H 100 Nasal Cannula 05/01/22 03:48 55 L 04/30/22 23:49 97.9 F 52 L 18 157/90 H 97 Nasal Cannula PG Care Time/CCT Total # of Minutes Spent Total Time Spent with Patient: Total time spent is greater than 50% in coordination of care (as documented) at patient's floor/unit and/or counseling patient: Coding Level of Care Code 04135 Subseq Hosp Care Lvl 3 Diagnoses Metabolic encephalopathy G93.41 Lab test positive for detection of COVID-19 virus U07.1 Elevated troponin R77.8 Enteritis K52.9 Primary hypothyroidism E03.9 DVT prophylaxis Z29.9
[2022-05-01] MEDS: dexAMETHasone 6 MG in SYRINGE 0 ML IV SCH (10:08)
[2022-05-01] MEDS: CIPROFLOXACIN / D5W 400 MG/200 ML BAG IV SCH ×2 (10:11→20:08)
[2022-05-01] MEDS: MAGNESIUM SULFATE / D5W 1 GM/100 ML BAG IV SCH ×2 (10:14→12:10)
[2022-05-01] MEDS: ENOXAPARIN INJ 40 MG/0.4 ML SYR SQ SCH (10:48)
[2022-05-02] MEDS: LEVOTHYROXINE SODIUM 125 MCG TABLET PO SCH (05:28)
[2022-05-02 06:58] LABS: Hematocrit (blood only) 38.9 % (34.1-44.9); Hemoglobin 13.3 g/dl (12.0-16.0); Mean Corpuscular Hgb Conc 34.2 g/dL (32.0-36.0); Mean Corpuscular Volume 93.5 fL (80.0-100.0); RDW Coefficient of Variation 13.2 % (11.5-14.5); RDW Standard Deviation 45.4 fL (36.4-46.3); Red Blood Count 4.16 M/uL (3.93-5.22)
[2022-05-02 07:05] LABS: Mean Platelet Volume 13.7 fL (9.4-12.3); Platelet Count 135 K/uL (130-400)
[2022-05-02 07:17] LABS: BUN Creatinine Ratio 17.3 (10-20); Calcium 8.4 mg/dl (8.5-10.1); Est GFR (African American) 89.6 ml/min; Est GFR (Non-African American) 77.3 ml/min; Magnesium 1.7 mg/dl (1.7-2.4); Potassium 4.4 mmol/L (3.5-5.1)
[2022-05-02] MEDS: dexAMETHasone 6 MG in SYRINGE 0 ML IV SCH (09:30)
[2022-05-02] MEDS: ENOXAPARIN INJ 40 MG/0.4 ML SYR SQ SCH (09:30)
[2022-05-02] MEDS: CIPROFLOXACIN / D5W 400 MG/200 ML BAG IV SCH (09:42)
--- NOTE | 2022-05-02 18:20 | Discharge Summary ---
Date of Service May 02, 2022 Principal Diagnosis covid infection with enteritis urinary tract infection Discharge Exam The patient appeared stable Vital signs as documented. Lungs are clear to auscultation and appear unlabored Cardiac exam, Rhythm is regular.. No murmurs, rubs or gallops. Abdominal exam reveals normal bowel sounds, soft non tender, no masses Extremities are nonedematous and both pedal pulses are normal. Neurologic exam is alert and oriented, no focal loss of strength or sensation Skin is without bruises or rashes Psychologically is without concerns for anxiety or depression. Discharge Data Allergies Allergy/AdvReac Type Severity Reaction Status Date / Time Penicillins Allergy Unknown Rash Verified 07/15/21 07:23 Cephalosporins AdvReac Unknown Rash Verified 07/15/21 07:23 Consultations 04/30/22 08:05 ED Decision to Admit Stat Ordered Studies 04/30/22 05:41 CT head/brain wo con Stat Hospital Course (1) Metabolic encephalopathy: Patient presented with decreased alertness altered mental status likely secondary to enteritis from COVID infection. volume resusitated in ER. Initially hypothermic supported by Reina gaviria. all symptoms resolved except fatigue Patient urinalysis E Coli >100,000, causing metabolic encephalopathy on top of COVID infection causing encephalopathy (2) Lab test positive for detection of COVID-19 virus: Patient does not exhibit signs of COVID-pneumonia she however is hypoxic on presentation. She does have a significant smoking history of at least 40 pack years and chest x-ray changes consistent with likely COPD. did initiate dexamethasone, will dc on Rx no further hypoxia and did not start remdesivir (3) Elevated troponin: Patient's troponin only mildly above the upper limits of normal EKGs without acute changes repeat high-sensitivity troponin normal (4) Enteritis: Nausea vomiting diarrhea have resolved at this point time. (5) Primary hypothyroidism: Continue her home Synthroid, TSH check on presentation was at the lower limits of normal Total Time Total Time Spent Total Time Spent (In Minutes): It required greater than 30 minutes to prepare this patient for discharge Discharge Plan Discharge Items Patient Disposition: Home - Self-Care Reason For Visit: ENCEPHALOPATHY Discharge Diagnosis: covid infection E Coli UTI Condition on Discharge: Fair Activity: Per Instructions section Activity Comment: Plenty of rest Non-emergency contact: Primary Care Provider Call non-emergency contact if: your symptoms worsen Follow-up/Referrals: Mary Valdes CRNP [Primary Care Provider] - Diet: Regular Addtl Attending Provider Instructions: You have been diagnosed with covid infection, it would be recommended that you quarantine yourself for 10 days from your first test or first symptoms, and if at the 10th day you have no symptoms the you can come off quarantine but use common sense precautions. Quarantine means attempting to stay away from people who have not had an active covid infection in the past, and if you have to be around others to wear a mask even if you are indoors, do not share a room to sleep in with others until you are out of quarantine. If you still have symptoms at the 10th day, continue to quarantine until you are symptom free for 48 hours Pending Studies at Discharge: No Stand-Alone Forms: [facility], Smoking Cessation Medications and DC Order Prescriptions: New ciprofloxacin HCl [Cipro] 500 mg tablet 500 mg PO BID Qty: 10 0RF dexamethasone 6 mg tablet 6 mg PO DAILY Qty: 5 0RF Continued levothyroxine 125 mcg tablet 125 mcg PO DAILY Rx Instructions: TAKE 1 TABLET DAILY DIRECTED. Discharge Orders: Discharge Order (Routine); Ordered 05/02/22 Ordered By: Joe Laws Admission Data Admit Date/Time: 04/30/22 07:49 Attending Provider: Joe Laws Admit Provider: Joe Laws Primary Care Provider: Mary Valdes Other Providers: Joe Laws Other Interventions: Discharge Summary Assessment (RN) Last Done: 05/02/22 13:05 Coding Level of Care Code D/C DAY MANAGEMENT >30 MINS Diagnoses Metabolic encephalopathy G93.41 Lab test positive for detection of COVID-19 virus U07.1 Elevated troponin R77.8 Enteritis K52.9 Primary hypothyroidism E03.9
== END 2022-05-02 15:00 | disposition home or self-care (01) ==
LOC: 2S 05:34 → ED 05:34 → 2S 08:12

== ENCOUNTER 2024-11-30 17:21 | Inpatient (IN) ==
--- NOTE | 2024-11-30 17:26 | Emergency Department Note ---
Impression & Plan Syncope Admission ED Provider Note HPI: History obtained from patient and EMS. The patient is a 64-year-old female who presents the emergency department after an apparent syncopal event. 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 Patient states she bent over when she got into the building to plug something in and she fell and hit the top of her head. Patient states that she did not lose consciousness but when she stood up she felt dizzy. Patient states she then went and sat down in a chair and apparently had an episode of syncope. Patient states she did not fall out of the chair when she had the syncopal event. She states she woke up and 3 ladies were helping her and she was still sitting in the chair. No seizure-like activity was noted per EMS, EMS was contacted by staff at the [facility] and the patient was brought to the ER for assessment. On arrival here to the ED the patient is alert, she states she feels lightheaded but she is otherwise hemodynamically stable, she is saturating well on room air. Patient denies any chest pain or shortness of breath. Patient does not have any obvious focal deficits on arrival. ROS: - Per HPI Differential Diagnosis: Vasovagal event, stroke, intracranial hemorrhage, arrhythmia to include SVT, high degree heart block, ventricular tachycardia, ACS, PE, amongst other potential pathologies. *Outpatient medications and allergy history reviewed. PE: General: Alert HEENT: Normocephalic, trachea midline Eyes: Extraocular eye movement is intact, no scleral erythema Pulmonary: Clear to auscultation bilaterally, no wheezing Cardio: Regular rate and rhythm GI: Abdomen is soft to palpation : No suprapubic tenderness MSK: No evidence of trauma or malformation of the extremities, no edema Skin: No evidence of rash Neuro: Alert, no focal deficits Psychiatric: Cooperative INDEPENDENT INTERPRETATIONS: youth nutritional monitor: (As interpreted by myself): - An order was placed for continuous cardiac monitoring - Patient was noted to be in sinus rhythm with a rate of 62 EKG: (As interpreted by myself): Rate: 58 Rhythm: Sinus bradycardia Intervals: Within normal limits ST changes: No ST elevation Time: 1724 Chest x-ray: (As interpreted by myself): No acute disease Interventions provided in ED: -IV fluid bolus Medical Decision Making: IV was established and lab work obtained, patient was placed on laboratory monitor. Lab work shows no leukocytosis, hemoglobin is normal, platelet count is normal, CMP does not show any evidence of any critical findings. Troponin is mildly elevated at 18.1, TSH is low and free T4 is slightly elevated at 1.89. CT imaging of the head with angiography was obtained and there is no evidence of any large vessel occlusion/stroke. CT imaging of the chest does not show any evidence of PE. CT imaging of the abdomen and pelvis was suggestive of possible splenic injury. On my reevaluation of the patient she does not have any tenderness in the left upper quadrant, she states that when she fell originally and hit her head she thinks she might of fallen also on her left side. Given this, I did recommend that I touch base with the trauma facility and the patient stated that that was fine but she did not want to be transferred under any circumstances. I explained the risk of this to the patient as we do not have trauma surgery at this facility, and she expressed an understanding and stated "I'm not too worried about it". I did discuss the patient's presentation and CT imaging results with the on-call trauma surgeon at [facility], Dr. Miles. She recommended at this point that if the patient was going to stay at our facility that we obtain repeat H&H every 6 hours or in the morning, patient would be made n.p.o., and otherwise observation would be all that was necessary at this time given the patient's hemodynamic stability with normal hemoglobin and questionable splenic injury and CT imaging further interpreting radiologist. I discussed all of this with the patient, she is in agreement for admission for further management of syncopal event with mildly elevated troponin. General surgery was consulted and will follow with the patient following my discussion with the midlevel provider, Sulma Miller PA-C, who staffed the case with Dr. Manriquez of general surgery. Case was discussed with the on-call hospitalist for [facility], Dr. Cavazos, the patient was placed for admission in stable condition. Consultants/Discussions held with other healthcare providers: -General Surgery, Dr. Manriquez -Trauma surgery at [facility], Dr. Miles -Hospitalist, Dr. Cavazos Disposition discussion held by myself with: -Patient Diagnosis: 1. Syncopal event, acute, nonspecific 2. Mechanical fall, acute 3. Closed head injury, acute 4. Possible splenic injury on CT imaging of the abdomen/pelvis, acute 5. Elevated high-sensitivity troponin, acute, mild Disposition: Admission Chino Herrera DO Emergency Medicine Past Med/Surg History Problem List (Updated 11/30/24 @ 22:40 by Chino Herrera DO) Syncope (Acute) Splenic laceration Elevated creatine phosphokinase level Palpitations (Acute) Primary hypothyroidism (Chronic) Elevated blood-pressure reading without diagnosis of hypertension (Acute) Depression (Acute) Chronic low back pain (Acute) Anxiety (Chronic) Medical History Umbilical hernia Hypothyroid Surgical History Status post proximal row carpectomy of wrist History of umbilical hernia repair History of bilateral tubal ligation Family History Father Diabetes Kidney disease Mother Gallbladder disease Hypertension Denies family history of Ovarian cancer Prostate cancer Myocardial infarction Breast cancer Social History Smoking Status: Current every day smoker Tobacco Type: Cigarettes Age Started Using Tobacco: 16; Cigarettes Per Day: half pack/day; Second Hand Exposure: No; Do You Dip or Chew Tobacco: No; Hx Alcohol Use: No Hx Substance Use: No Preferred Language: German Communication Ability: Effective Repeat Chief Required: No Beliefs That Will Affect Care: None marital status: Single Current Living Situation: Family Current Living Situation Comment: Daughter current occupational status: employed current occupation: working [employer] How many Children do You have: 1 Feels Safe at Home: Yes Childhood Exposure to Second-Hand Smoke: Yes Diet: regular caffeine: No Dental Care, Regularly: No Physical Activity Frequency: Daily Seatbelt Use: always Sunscreen Use: Yes (sometimes) Assistive Devices: None Allergies Allergies Allergy/AdvReac Type Severity Reaction Status Date / Time Penicillins Allergy Unknown Rash Verified 02/22/24 07:58 Cephalosporins AdvReac Unknown Rash Verified 02/22/24 07:58 Home Meds Previous Rx's Medication Instructions Recorded levothyroxine 125 mcg tablet 125 mcg PO DAILY #30 tabs 11/08/24 Results & Data (ED) Vital Signs Vital Signs - 24 hr 11/30/24 17:21 11/30/24 17:21 11/30/24 17:23 Temperature Temperature Source Pulse Rate 59 L Pulse Rate [Right Brachial] Pulse Rhythm [Right Brachial] Pulse Strength [Right Brachial] Respiratory Rate 13 Respiratory Effort / Characteristics Non-Labored Spontaneous Respiratory Depth Normal Respiratory Pattern Blood Pressure 102/71 102/71 101/64 Blood Pressure [Right Arm] Blood Pressure Mean 82 82 76 Blood Pressure Mean [Right Arm] Blood Pressure Position [Right Arm] Pulse Oximetry 98 Oxygen Delivery Method Room Air Sepsis Recent Fever Within 48 Hours No Sepsis New/Unexplained Change in Mental Status No Sepsis Action Taken by Nursing No Action Required 11/30/24 17:23 11/30/24 17:23 11/30/24 17:29 Temperature 36 C L Temperature Source Rectal Pulse Rate Pulse Rate [Right Brachial] Pulse Rhythm [Right Brachial] Pulse Strength [Right Brachial] Respiratory Rate Respiratory Effort / Characteristics Non-Labored Spontaneous Respiratory Depth Normal Respiratory Pattern Blood Pressure Blood Pressure [Right Arm] Blood Pressure Mean Blood Pressure Mean [Right Arm] Blood Pressure Position [Right Arm] Pulse Oximetry Oxygen Delivery Method Room Air Sepsis Recent Fever Within 48 Hours Sepsis New/Unexplained Change in Mental Status Sepsis Action Taken by Nursing 11/30/24 17:31 11/30/24 17:31 11/30/24 17:44 Temperature Temperature Source Pulse Rate 58 L Pulse Rate [Right Brachial] Pulse Rhythm [Right Brachial] Pulse Strength [Right Brachial] Respiratory Rate Respiratory Effort / Characteristics Respiratory Depth Respiratory Pattern Blood Pressure 113/58 L 113/58 L Blood Pressure [Right Arm] Blood Pressure Mean 78 78 Blood Pressure Mean [Right Arm] Blood Pressure Position [Right Arm] Pulse Oximetry Oxygen Delivery Method Sepsis Recent Fever Within 48 Hours Sepsis New/Unexplained Change in Mental Status Sepsis Action Taken by Nursing 11/30/24 19:06 11/30/24 21:00 11/30/24 21:27 Temperature Temperature Source Pulse Rate 67 Pulse Rate [Right Brachial] 65 68 Pulse Rhythm [Right Brachial] Regular Regular Pulse Strength [Right Brachial] Normal Normal Respiratory Rate 14 21 Respiratory Effort / Characteristics Non-Labored Non-Labored Respiratory Depth Normal Normal Respiratory Pattern Regular Regular Blood Pressure Blood Pressure [Right Arm] 156/75 H 133/77 Blood Pressure Mean Blood Pressure Mean [Right Arm] 102 95 Blood Pressure Position [Right Arm] Lying Lying Pulse Oximetry 100 99 Oxygen Delivery Method Room Air Room Air Sepsis Recent Fever Within 48 Hours Sepsis New/Unexplained Change in Mental Status Sepsis Action Taken by Nursing Laboratory Data 11/30/24 17:11/30/24 17:25 Lab Results 11/30/24 11/30/24 Range/Units 17: 17:31 WBC 6.45 (4.8-10.8) K/ul RBC 4.30 (4.20-5.40) M/uL Hgb 13.8 (12.0-16.0) g/dl POC Hgb 13.9 (12.0-16.0) g/dl Hct 40.0 (37.0-47.0) % POC Hct 41 (37-47) % MCV 93.0 (80.0-100.0) fL MCH 32.1 (25.0-34.0) pg MCHC 34.5 (32.0-36.0) g/dL RDW Std Deviation 42.5 (36.4-46.3) fL RDW Coeff of Lucy 12.4 (11.5-14.5) % Plt Count 193 (130-400) K/uL MPV 13.0 H (9.4-12.4) fL Immature Gran % (Auto) 0.2 % Neut % (Auto) 67.1 % Lymph % (Auto) 21.4 % [place] % (Auto) 8.4 % Eos % (Auto) 1.7 % Baso % (Auto) 1.2 % Neut # (Auto) 4.33 (1.40-6.50) K/uL Lymph # (Auto) 1.38 (1.20-3.40) K/uL [place] # (Auto) 0.54 (0.11-0.59) K/uL Eos # (Auto) 0.11 (0.00-0.50) K/uL Baso # (Auto) 0.08 (0.00-0.20) K/uL Immature Gran # (Auto) 0.01 (0.01-0.20) K/uL PT 10.7 (9.0-12.0) Seconds INR 1.0 (0.9-1.1) APTT 23 (21-31) Seconds PTT Ratio 0.9 POC Sodium 138 (135-144) mmol/L Sodium 136 (136-145) mmol/L POC Potassium 3.8 (3.3-5.0) mmol/L Potassium 3.9 (3.5-5.1) mmol/L POC Chloride 105 (101-112) mmol/L Chloride 105 (98-107) mmol/L Carbon Dioxide 22 (21-32) mmol/L POC Total CO2 21 L (24-31) mmol/L Anion Gap 9 (3-11) POC Anion Gap 17.0 (16-25) mmol/L POC BUN 22 H (7-18) mg/dl BUN 21 (6-23) mg/dl Creatinine 1.24 H (0.6-1.2) mg/dl POC Creatinine 1.3 (0.6-1.3) mg/dl Est Cr Clr Drug Dosing 41.8 ml/min eGFR 48.00 BUN/Creatinine Ratio 16.9 (10-20) Glucose 115 H (70-99(Fasting)) mg/dl POC Glucose (other) 109 H (70-99) mg/dl Calcium 8.8 (8.6-10.3) mg/dl POC Ioniz Calcium Ofelia 1.09 L (1.12-1.32) mmol/l Magnesium 1.7 (1.7-2.4) mg/dl Total Bilirubin 0.4 (0.2-1.0) mg/dl AST 22 (13-39) U/L ALT 17 (7-52) U/L Alkaline Phosphatase 106 H (34-104) U/L Troponin I High Sens 18.1 H (0-14) pg/ml Total Protein 6.6 (6.0-8.3) gm/dl Albumin 3.5 (3.4-5.0) gm/dl Globulin 3.1 (2.5-4.0) gm/dl Albumin/Globulin Ratio 1.1 (0.9-2) TSH < 0.010 L (0.300-4.500) uIu/ml Free T4 1.89 H (0.61-1.60) ng/dl Administered Medications Lactated Ringer's (Lr) 1,000 mls @ 80 mls/hr IV .[id number] LEONARDO Stop: 12/01/24 09:59 Last Admin: 11/30/24 22:00 Dose: 80 mls/hr Documented By: CHRISTOPHER Magnesium Sulfate/Dextrose (Magnesium Sulfate / D5w) 1 gm in 100 mls @ 50 mls/hr IV ONE ONE Stop: 11/30/24 23:21 Last Admin: 11/30/24 22:00 Dose: 50 mls/hr Documented By: CHRISTOPHER Potassium Chloride (K Harjeet / Wtr) 10 meq in 100 mls @ 100 mls/hr IV Q1H LEONARDO Stop: 11/30/24 23:29 Last Admin: 11/30/24 22:00 Dose: 100 mls/hr Documented By: CHRISTOPHER Discontinued Medications Sodium Chloride (Nss) 1,000 mls @ 999 mls/hr IV .[id number] ONE Stop: 11/30/24 18:24 Last Infusion: 11/30/24 18:21 Dose: Infused Documented By: Admin: 11/30/24 17:32 Dose: 999 mls/hr Documented By: MAINE Ampicillin Sodium/Sulbactam Sodium (Unasyn) 3,000 mg in 100 mls @ 200 mls/hr IV NOW STA; Protocol Stop: 11/30/24 22:02 Last Admin: 11/30/24 22:00 Dose: 200 mls/hr Documented By: CHRISTOPHER Ioversol (Optiray 320 125ml) 119 ml IV ONCE ONE Stop: 11/30/24 18:02 Last Admin: 11/30/24 18:06 Dose: 119 ml Documented By: PASCUAL Ondansetron HCl (Ondansetron Inj 2 Mg/Ml 2 Ml Vial) Confirm Administered Dose 4 mg .ROUTE .STK-MED ONE Stop: 11/30/24 17:54 Last Admin: 11/30/24 18:08 Dose: 4 mg Documented By: MAINE Imaging Data Radiologist's Impression: Chest X-Ray 11/30/24 17:23 EXAM: Radiograph of the Chest 1 View INDICATION: Syncope TECHNIQUE: Frontal view of the chest. COMPARISON: 05/21/2022 FINDINGS: Lungs and pleural spaces: Able hyperinflation. New consolidation right and linear atelectasis left lung bases. Probable small right pleural effusion. No pneumothorax. Heart: Shape and configuration within normal limits allowing for technique. Mediastinum: Normal contour. Bones/joints: Degenerative changes noted in the scoliotic spine. No acute osseous abnormality noted. Soft tissues: No abnormality noted. No radiopaque foreign body noted. Upper abdomen: No abnormality noted. IMPRESSION: 1. Right basilar atelectasis or pneumonia and small right pleural effusion. 2. Mild left base atelectasis. ACT 112: N/A Electronically signed by Penny Aiken 11-30-2024 5:[address] 11/30/24 17:23 Clinical History: Found unresponsive Technique: Axial computed tomography images were obtained of the brain without intravenous contrast. Comparison is made to the prior CT dated 05/21/2022 Findings: There is unchanged mild cerebral atrophy, within expected limits for the patient's age. Areas of decreased attenuation are seen within the periventricular white matter, likely representing chronic small vessel ischemic disease. There is no definite sign of acute or old infarction. No intracranial hemorrhage is evident. No definite mass lesion is seen on this noncontrast examination. There is no midline shift or other form of herniation. No hydrocephalus is seen. No fracture is identified. The orbits and the visualized paranasal sinuses appear unremarkable. The mastoid air cells appear clear. Impression: 1. Cerebral atrophy and chronic small vessel ischemic disease 2. Otherwise unremarkable noncontrast CT of the brain Electronically signed by Anmol Banda 11-30-2024 6:29 PM Head CTA 11/30/24 17:23 Clinical History: Found unresponsive Technique: Axial computed tomography images were obtained of the brain after the administration of intravenous contrast according to the CT angiogram protocol Findings: There is mild calcified plaque within the cavernous and supraclinoid segments of the internal carotid arteries bilaterally, without stenosis No definite stenosis or aneurysm is seen of the anterior, middle, or posterior cerebral artery circulations. The visualized vertebral arteries and the basilar artery appear unremarkable Impression: No definite stenosis or aneurysm of the intracranial arteries Electronically signed by Anmol Banda 11-30-2024 6:38 PM Neck CTA 11/30/24 17:23 Clinical History: Found unresponsive Technique: Axial computed tomography images were obtained of the neck after the administration of intravenous contrast according to the CT angiogram protocol Findings: No stenosis is seen of the common carotid arteries bilaterally. There is a mild, approximately 40% diameter stenosis of the right carotid bulb. There is an approximately 50% diameter stenosis of the left carotid bulb and proximal left internal carotid artery. The remainder of the internal carotid arteries appear patent bilaterally. No stenosis of the external carotid arteries is seen The vertebral arteries are patent bilaterally with no significant stenosis seen. The visualized thoracic aorta appears unremarkable. There is an approximately 40% diameter stenosis of the proximal left subclavian artery The thyroid gland is diminutive or absent Impression: 1. Approximately 40% stenosis of the right carotid bulb 2. Approximately 50% stenosis of the left carotid bulb and proximal left ICA 3. Approximately 40% stenosis of the proximal left subclavian artery ACT 112: Positive. There are findings on this exam that require communication between the performing entity and the patient following Patient Test Result Information Act ([place] ACT 112) guidelines. Electronically signed by Anmol Banda 11-30-2024 6:35 PM Abdomen/Pelvis CT 11/30/24 17:51 Clinical History: Found unresponsive Technique: Axial computed tomography images were obtained of the abdomen and pelvis after the administration of intravenous contrast. Findings: The liver is overall of normal size, attenuation, and contour with no sign of cirrhosis or significant fatty infiltration. No liver mass lesion is seen. The portal vein is patent. There is small gallstones. There is no definite sign of acute cholecystitis. No bile duct dilatation is noted. The spleen is of normal size. There is a linear band of low attenuation within the superior aspect of the spleen that could represent a splenic laceration or fracture. There is a small amount of perisplenic fluid. The pancreas appears normal with no sign of acute or chronic pancreatitis and no mass lesion noted. The pancreatic duct is of normal caliber. The adrenal glands appear unremarkable. No definite renal or proximal ureteral calculi are seen on this contrast-enhanced study. There is no hydronephrosis or perinephric stranding. No renal mass lesion is identified. The abdominal aorta is of normal caliber. No abdominal adenopathy is seen. There is a small hiatal hernia. There is no sign of small bowel obstruction. There is diverticulosis without evidence of diverticulitis. No free intraperitoneal air is identified. No definite distal ureteral or bladder calculi are seen. There are numerous foci of calcification within the pelvis that likely represent phleboliths. The bladder is decompressed. The iliac arteries are of normal caliber. There are apparent stenoses of the common iliac arteries bilaterally. No pelvic adenopathy is noted. No fracture is identified. No focal osseous lesion is seen. There is lumbar scoliosis and degenerative disc disease Impression: 1. Linear band within the spleen that could represent a splenic laceration or fracture 2. Minimal amount of perisplenic fluid 3. Small hiatal hernia 4. Diverticulosis without evidence of diverticulitis ACT 112: Positive. There are findings on this exam that require communication between the performing entity and the patient following Patient Test Result Information Act ([place] ACT 112) guidelines. Electronically signed by Anmol Banda 11-30-2024 6:[address] 11/30/24 17:51 Clinical History: Found unresponsive Technique: Axial computed tomography images were obtained of the chest after the administration of intravenous contrast Findings: There is mild emphysema. There is a 1 cm round well marginated noncalcified nodule in the left lung apex. There is mild bilateral lung base atelectasis. There is no pleural effusion or pneumothorax. There is no sign of pulmonary fibrosis or other diffuse interstitial process. No endobronchial lesion is seen. There are bilateral Bochdalek hernias containing only fat There is no mediastinal, hilar, or axillary adenopathy. The thoracic aorta appears unremarkable with no sign of aneurysm or dissection. There is no pericardial effusion. There is coronary atherosclerosis There is thoracic scoliosis. No fracture is seen. No focal osseous lesion is evident Impression: 1. Emphysema 2. 1 cm nodule in the left lung apex. This is indeterminate in nature and bronchogenic carcinoma is possible. PET scan or biopsy could be performed, or a follow-up chest CT could be obtained in 3 months ACT 112: Positive. There are findings on this exam that require communication between the performing entity and the patient following Patient Test Result Information Act ([place] ACT 112) guidelines. Electronically signed by Anmol Banda 11-30-2024 6:41 PM Discharge Plan Visit Data Chief Complaint: Unresponsive Stated Complaint: UNRESPONSIVE ED Provider: Chino Herrera Discharge Problem: Syncope Forms Stand Alone Forms: [employer] Prescriptions Prescriptions: No Action levothyroxine 125 mcg tablet 125 mcg PO DAILY Qty: 30 0RF Rx Instructions: please check thyroid blood workfor further refills Referrals Referrals: Mary Valdes CRNP [Primary Care Provider] -
[2024-11-30] MEDS: SODIUM CHLORIDE 0.9% 1,000 ML IV ONE (17:32)
[2024-11-30 17:42] LABS: Basophils # (auto) 0.08 K/uL (0.00-0.20); Basophils % (auto) 1.2 %; Eosinophils # (auto) 0.11 K/uL (0.00-0.50); Eosinophils % (auto) 1.7 %; Hemoglobin 13.8 g/dl (12.0-16.0); Immature Granulocytes # (auto) 0.01 K/uL (0.01-0.20); Immature Granulocytes % (auto) 0.2 %; Lymphocytes # (auto) 1.38 K/uL (1.20-3.40); Lymphocytes % (auto) 21.4 %; Mean Corpuscular Hemoglobin 32.1 pg (25.0-34.0); Mean Corpuscular Hgb Conc 34.5 g/dL (32.0-36.0); Monocytes # (auto) 0.54 K/uL (0.11-0.59); Monocytes % (auto) 8.4 %; Neutrophils # (auto) 4.33 K/uL (1.40-6.50); Neutrophils % (auto) 67.1 %; Platelet Count 193 K/uL (130-400); RDW Coefficient of Variation 12.4 % (11.5-14.5); RDW Standard Deviation 42.5 fL (36.4-46.3); White Blood Count 6.45 K/ul (4.8-10.8)
[2024-11-30 17:43] LABS: iSTAT Creatinine 1.3 mg/dl (0.6-1.3); iSTAT Hemoglobin 13.9 g/dl (12.0-16.0); iSTAT Ionized Calcium 1.09 mmol/l (1.12-1.32); iSTAT Potassium 3.8 mmol/L (3.3-5.0)
--- NOTE | 2024-11-30 17:44 | XRay Report ---
EXAM: Radiograph of the Chest 1 View INDICATION: Syncope TECHNIQUE: Frontal view of the chest. COMPARISON: 05/21/2022 FINDINGS: Lungs and pleural spaces: Able hyperinflation. New consolidation right and linear atelectasis left lung bases. Probable small right pleural effusion. No pneumothorax. Heart: Shape and configuration within normal limits allowing for technique. Mediastinum: Normal contour. Bones/joints: Degenerative changes noted in the scoliotic spine. No acute osseous abnormality noted. Soft tissues: No abnormality noted. No radiopaque foreign body noted. Upper abdomen: No abnormality noted. IMPRESSION: 1. Right basilar atelectasis or pneumonia and small right pleural effusion. 2. Mild left base atelectasis. ACT 112: N/A Electronically signed by Penny Aiken 11-30-2024 5:44 PM
[2024-11-30 18:03] LABS: Alanine Aminotransferase 17 U/L (7-52); Albumin Globulin Ratio 1.1 (0.9-2); Albumin Level 3.5 gm/dl (3.4-5.0); Alkaline Phosphatase 106 U/L (34-104); Anion Gap 9 (3-11); Aspartate Aminotransferase 22 U/L (13-39); BUN Creatinine Ratio 16.9 (10-20); Bilirubin,Total 0.4 mg/dl (0.2-1.0); Blood Urea Nitrogen 21 mg/dl (6-23); Calcium 8.8 mg/dl (8.6-10.3); Carbon Dioxide 22 mmol/L (21-32); Chloride 105 mmol/L (98-107); Creatinine Clr Calc Pharmacy 41.8 ml/min; Globulin 3.1 gm/dl (2.5-4.0); Glucose 115 mg/dl (70-99(Fasting)); Magnesium 1.7 mg/dl (1.7-2.4); Potassium 3.9 mmol/L (3.5-5.1); Sodium 136 mmol/L (136-145); Total Protein 6.6 gm/dl (6.0-8.3)
[2024-11-30] MEDS: OPTIRAY 320 125ml IV ONE (18:06)
[2024-11-30] MEDS: ONDANSETRON INJ 2 MG/ML 2 ML VIAL ONE (18:08)
[2024-11-30 18:10] LABS: Troponin I High Sensitivity 18.1 pg/ml (0-14)
[2024-11-30 18:18] LABS: Partial Thromboplastin Ratio 0.9; Partial Thromboplastin Time 23 Seconds (21-31); Prothrombin Time 10.7 Seconds (9.0-12.0)
[2024-11-30 18:19] LABS: Thyroid Stimulating Hormone < 0.010 uIu/ml (0.300-4.500)
--- NOTE | 2024-11-30 18:29 | CT Scan Report ---
Clinical History: Found unresponsive Technique: Axial computed tomography images were obtained of the brain without intravenous contrast. Comparison is made to the prior CT dated 05/21/2022 Findings: There is unchanged mild cerebral atrophy, within expected limits for the patient's age. Areas of decreased attenuation are seen within the periventricular white matter, likely representing chronic small vessel ischemic disease. There is no definite sign of acute or old infarction. No intracranial hemorrhage is evident. No definite mass lesion is seen on this noncontrast examination. There is no midline shift or other form of herniation. No hydrocephalus is seen. No fracture is identified. The orbits and the visualized paranasal sinuses appear unremarkable. The mastoid air cells appear clear. Impression: 1. Cerebral atrophy and chronic small vessel ischemic disease 2. Otherwise unremarkable noncontrast CT of the brain Electronically signed by Anmol Banda 11-30-2024 6:29 PM
--- NOTE | 2024-11-30 18:37 | CT Scan Report ---
Clinical History: Found unresponsive Technique: Axial computed tomography images were obtained of the neck after the administration of intravenous contrast according to the CT angiogram protocol Findings: No stenosis is seen of the common carotid arteries bilaterally. There is a mild, approximately 40% diameter stenosis of the right carotid bulb. There is an approximately 50% diameter stenosis of the left carotid bulb and proximal left internal carotid artery. The remainder of the internal carotid arteries appear patent bilaterally. No stenosis of the external carotid arteries is seen The vertebral arteries are patent bilaterally with no significant stenosis seen. The visualized thoracic aorta appears unremarkable. There is an approximately 40% diameter stenosis of the proximal left subclavian artery The thyroid gland is diminutive or absent Impression: 1. Approximately 40% stenosis of the right carotid bulb 2. Approximately 50% stenosis of the left carotid bulb and proximal left ICA 3. Approximately 40% stenosis of the proximal left subclavian artery ACT 112: Positive. There are findings on this exam that require communication between the performing entity and the patient following Patient Test Result Information Act ([place] ACT 112) guidelines. Electronically signed by Anmol Banda 11-30-2024 6:35 PM
--- NOTE | 2024-11-30 18:39 | CT Scan Report ---
Clinical History: Found unresponsive Technique: Axial computed tomography images were obtained of the brain after the administration of intravenous contrast according to the CT angiogram protocol Findings: There is mild calcified plaque within the cavernous and supraclinoid segments of the internal carotid arteries bilaterally, without stenosis No definite stenosis or aneurysm is seen of the anterior, middle, or posterior cerebral artery circulations. The visualized vertebral arteries and the basilar artery appear unremarkable Impression: No definite stenosis or aneurysm of the intracranial arteries Electronically signed by Anmol Banda 11-30-2024 6:38 PM
--- NOTE | 2024-11-30 18:42 | CT Scan Report ---
Clinical History: Found unresponsive Technique: Axial computed tomography images were obtained of the chest after the administration of intravenous contrast Findings: There is mild emphysema. There is a 1 cm round well marginated noncalcified nodule in the left lung apex. There is mild bilateral lung base atelectasis. There is no pleural effusion or pneumothorax. There is no sign of pulmonary fibrosis or other diffuse interstitial process. No endobronchial lesion is seen. There are bilateral Bochdalek hernias containing only fat There is no mediastinal, hilar, or axillary adenopathy. The thoracic aorta appears unremarkable with no sign of aneurysm or dissection. There is no pericardial effusion. There is coronary atherosclerosis There is thoracic scoliosis. No fracture is seen. No focal osseous lesion is evident Impression: 1. Emphysema 2. 1 cm nodule in the left lung apex. This is indeterminate in nature and bronchogenic carcinoma is possible. PET scan or biopsy could be performed, or a follow-up chest CT could be obtained in 3 months ACT 112: Positive. There are findings on this exam that require communication between the performing entity and the patient following Patient Test Result Information Act ([place] ACT 112) guidelines. Electronically signed by Anmol Banda 11-30-2024 6:41 PM
--- NOTE | 2024-11-30 18:46 | CT Scan Report ---
Clinical History: Found unresponsive Technique: Axial computed tomography images were obtained of the abdomen and pelvis after the administration of intravenous contrast. Findings: The liver is overall of normal size, attenuation, and contour with no sign of cirrhosis or significant fatty infiltration. No liver mass lesion is seen. The portal vein is patent. There is small gallstones. There is no definite sign of acute cholecystitis. No bile duct dilatation is noted. The spleen is of normal size. There is a linear band of low attenuation within the superior aspect of the spleen that could represent a splenic laceration or fracture. There is a small amount of perisplenic fluid. The pancreas appears normal with no sign of acute or chronic pancreatitis and no mass lesion noted. The pancreatic duct is of normal caliber. The adrenal glands appear unremarkable. No definite renal or proximal ureteral calculi are seen on this contrast-enhanced study. There is no hydronephrosis or perinephric stranding. No renal mass lesion is identified. The abdominal aorta is of normal caliber. No abdominal adenopathy is seen. There is a small hiatal hernia. There is no sign of small bowel obstruction. There is diverticulosis without evidence of diverticulitis. No free intraperitoneal air is identified. No definite distal ureteral or bladder calculi are seen. There are numerous foci of calcification within the pelvis that likely represent phleboliths. The bladder is decompressed. The iliac arteries are of normal caliber. There are apparent stenoses of the common iliac arteries bilaterally. No pelvic adenopathy is noted. No fracture is identified. No focal osseous lesion is seen. There is lumbar scoliosis and degenerative disc disease Impression: 1. Linear band within the spleen that could represent a splenic laceration or fracture 2. Minimal amount of perisplenic fluid 3. Small hiatal hernia 4. Diverticulosis without evidence of diverticulitis ACT 112: Positive. There are findings on this exam that require communication between the performing entity and the patient following Patient Test Result Information Act ([place] ACT 112) guidelines. Electronically signed by Anmol Banda 11-30-2024 6:46 PM
[2024-11-30 20:13] LABS: T4 Free Thyroxine 1.89 ng/dl (0.61-1.60)
--- NOTE | 2024-11-30 20:45 | Surgery Consultation ---
Date of Consultation November 30, 2024 Assessment & Plan (1) Splenic laceration: Patient is a 64-year-old female who presented to the emergency department after a syncopal episode and being found unresponsive. The patient did sustain a fall and hit her head and fell onto her left side. The patient was worked up and CT imaging was concerning for possible spleen laceration with small amount perisplenic fluid. The patient was seen and evaluated this evening, she is hemodynamically stable, and abdominal exam is benign at this time. Discussed patient's case with attending surgeon, Dr. Manriquez, and at this time recommend the following: -Keep patient NPO for tonight, IV fluids, trend Q6H H&H, and monitor vitals closely. -If patient does become unstable, I did discuss with her she would need to be transferred to a tertiary center for intervention for which she agrees. -Medical management per primary team, surgery will continue to follow History of Present Illness Reason for Consultation: possible splenic laceration History of Present Illness The patient is a 64-year-old female who presented to the emergency department after having a syncopal episode and being found unresponsive at the [employer] earlier today. The patient was cleaning at the [employer] today when she bent down to plug the vacuum in when she started feeling lightheaded and ultimately fell. The patient did hit her head and had fallen onto her left side. She denies loss of consciousness. The patient states that she hasn't been eating much this week because she is trying to lose weight and has just been drinking soda as her meals. Upon workup she underwent CTA head/neck which were found to be negative for any acute changes. However, during initial imaging, she started with acute onset of nausea and vomiting and underwent imaging of her abdomen/pelvis with findings concerning for spleen laceration. The patient was seen and evaluated this evening. She is resting comfortably in bed and is nontoxic appearing. The patient denies any abdominal pain or ongoing nausea or vomiting at this time. Her H&H is stable and is not tachycardic or hypotensive. Allergies Allergy/AdvReac Type Severity Reaction Status Date / Time Penicillins Allergy Unknown Rash Verified 02/22/24 07:58 Cephalosporins AdvReac Unknown Rash Verified 02/22/24 07:58 Home Medications Medication Instructions Recorded Confirmed Type levothyroxine 125 mcg tablet 125 mcg PO DAILY #30 tabs 11/08/24 11/30/24 Rx Patient History Medical History Umbilical hernia Hypothyroid Surgical History Status post proximal row carpectomy of wrist History of umbilical hernia repair History of bilateral tubal ligation Family History Father Diabetes Kidney disease Mother Gallbladder disease Hypertension Denies family history of Ovarian cancer Prostate cancer Myocardial infarction Breast cancer Social History Smoking Status: Current every day smoker Tobacco Type: Cigarettes Age Started Using Tobacco: 16; Cigarettes Per Day: 10 cigarettes; Second Hand Exposure: No; Do You Dip or Chew Tobacco: No; Hx Alcohol Use: No Hx Substance Use: No Preferred Language: Haitian Communication Ability: Effective Machine Biller Required: No Beliefs That Will Affect Care: None marital status: Single Current Living Situation: Family Current Living Situation Comment: Daughter current occupational status: employed current occupation: working [employer] How many Children do You have: 1 Feels Safe at Home: Yes Safety Concerns: Feels Safe At This Time Childhood Exposure to Second-Hand Smoke: Yes Diet: regular caffeine: No Dental Care, Regularly: No Physical Activity Frequency: Daily Seatbelt Use: always Sunscreen Use: Yes (sometimes) Assistive Devices: None Review of Systems Constitutional: no fever, no chills and no sweats Respiratory: no chest congestion and no dyspnea Cardiovascular: + syncope; no chest pain, no dyspnea at rest and no palpitations Gastrointestinal: no abdominal pain, no bloating, no nausea and no vomiting Genitourinary: no urinary hesitancy, no hematuria and no problem reported Physical Exam Constitutional: WD/WN, vitals as above Respiratory: normal respiratory effort; no respiratory distress and no retractions Cardiovascular: Rate/Rhythm: regular rate and regular rhythm Gastrointestinal (Abdomen): Inspection/Auscultation: abdomen normal to inspection and normal bowel sounds; abdomen not distended Percussion/Palpation: abdomen soft; abdomen nontender, no guarding, abdomen not rigid and abdomen not firm Skin: no rashes, warm and dry Results & Data Vital Signs (Past 12 Hours) Vital Signs Temp Pulse Pulse Resp BP BP Pulse Ox 11/30/24 19:06 65 14 156/75 H 100 11/30/24 17:44 58 L 11/30/24 17:31 113/58 L 11/30/24 17:31 113/58 L 11/30/24 17:29 36 C L 11/30/24 17:23 11/30/24 17:23 59 L 13 101/64 98 11/30/24 17:21 102/71 11/30/24 17:21 102/71 O2 Del Method 11/30/24 19:06 Room Air 11/30/24 17:44 11/30/24 17:31 11/30/24 17:31 11/30/24 17:29 11/30/24 17:23 Room Air 11/30/24 17:23 Room Air 11/30/24 17:21 11/30/24 17:21 Diagnostic Findings Clinical History: Found unresponsive Technique: Axial computed tomography images were obtained of the abdomen and pelvis after the administration of intravenous contrast. Findings: The liver is overall of normal size, attenuation, and contour with no sign of cirrhosis or significant fatty infiltration. No liver mass lesion is seen. The portal vein is patent. There is small gallstones. There is no definite sign of acute cholecystitis. No bile duct dilatation is noted. The spleen is of normal size. There is a linear band of low attenuation within the superior aspect of the spleen that could represent a splenic laceration or fracture. There is a small amount of perisplenic fluid. The pancreas appears normal with no sign of acute or chronic pancreatitis and no mass lesion noted. The pancreatic duct is of normal caliber. The adrenal glands appear unremarkable. No definite renal or proximal ureteral calculi are seen on this contrast-enhanced study. There is no hydronephrosis or perinephric stranding. No renal mass lesion is identified. The abdominal aorta is of normal caliber. No abdominal adenopathy is seen. There is a small hiatal hernia. There is no sign of small bowel obstruction. There is diverticulosis without evidence of diverticulitis. No free intraperitoneal air is identified. No definite distal ureteral or bladder calculi are seen. There are numerous foci of calcification within the pelvis that likely represent phleboliths. The bladder is decompressed. The iliac arteries are of normal caliber. There are apparent stenoses of the common iliac arteries bilaterally. No pelvic adenopathy is noted. No fracture is identified. No focal osseous lesion is seen. There is lumbar scoliosis and degenerative disc disease Impression: 1. Linear band within the spleen that could represent a splenic laceration or fracture 2. Minimal amount of perisplenic fluid 3. Small hiatal hernia 4. Diverticulosis without evidence of diverticulitis PG Care Time/CCT Total # of Minutes Spent Total Time Spent with Patient: Total time spent is greater than 50% in coordination of care (as documented) at patient's floor/unit and/or counseling patient: [place] [address] INT INP/OBS CARE 1/40MIN Patient Type New Medical Decision Making Straight Forward Diagnoses Splenic laceration S36.039A
--- NOTE | 2024-11-30 21:19 | History & Physical Report ---
Date of Service November 30, 2024 Assessment & Plan (1) Syncope: (2) Aspiration pneumonia: (3) Splenic laceration: (4) Primary hypothyroidism: (5) Elevated troponin: (6) Carotid artery disease: (7) Lung nodule: Plan Patient is a 64-year-old female with a past medical history of dep ression/anxiety and hypothyroidism. 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 Patient reported that she was feeling lightheaded and bent over to take out the trash, fell, hit her head. At this point she did not have a loss of consciousness however she stood up and felt dizzy and went to a chair where she synopsized. Patient also stated she has not eaten much for the past week because she is trying to lose weight. Imaging showed possible splenic laceration and concern for right lower lobe aspiration pneumonia. All other diagnostic imaging essentially negative for acute changes. she is being admitted to the PCU for IV antibiotics, echocardiogram, and trending H&H with splenic laceration. Surgical team agreeable. #syncope Suspect component of dehydration/starvation as patient reports only drinking Pepsi for the past week in sinus bradycardia on arrival to ED, rate [address] showed splenic laceration as below, CXR showed pneumonia as below, otherwise imaging negative for acute changes of note patient appeared to have an event monitor in 2021, patient does not recall, showed PVCs and PACs with dizziness Echocardiogram in 2021 showed EF 55 to 60%, mitral regurg Cr increase 0.98 to 1.24 1L NSS bolus in ED, continue fluid resuscitation with LR at 80 mL/hour x 1 bag Mag 1.7, K+ 3.8 - 1 bag IV mag, 2 bags K rider EKG showed sinus bradycardia, no ischemic changes Echocardiogram ordered trend BMP and mag Tylenol and Zofran as needed monitor on tele #right lower lobe aspiration pneumonia CXR showing right basilar atelectasis or pneumonia and small right pleural effusion, mild left base atelectasis CT shows emphysema, nodule noted below, mild bilateral lung base atelectasis, no effusion no leukocytosis, VSS on 2L NC at time of admission coverage with Unasyn 1.5mg q6h MRSA swab ordered, will add MRSA coverage if positive incentive spirometry oxygen prn for O2 <94%, wean as tolerated aspiration precautions #splenic laceration AP CT shows linear band within spleen that could represent splenic laceration or fracture with minimal amount of perisplenic fluid hemodynamically stable at time of admission trend H&H q6h Will have n.p.o. for tonight, reassess in am 12/01 general surgery team consulted - if becomes unstable will need transfer to tertiary care center #hyperthyroidism/overcorrected hypothyroidism TSH < 0.1, T4 1.89 ( 05/24/24 was becoming borderline overcorrected with TSH 0.011 and T4 1.55) hold levothyroxine repeat TSH with PCP to determine restarted levothyroxine and dosing #elevated troponin Suspect 2/2 demand/stress Troponin 18.1; repeat ordered Repeat with a.m. labs Monitor on telemetry and echocardiogram ordered for above #carotid artery stenosis mild/ unlikely to have contributed to above Neck CTA showed 40% stenosis right carotid bulb, 50% stenosis left carotid bulb and proximal left ICA, 40% stenosis proximal left subclavian artery lipid panel with am labs #lung nodule is current smoker - 1/2 ppd; declines need for nicotine patch at time of admission chest ct showed emphysema and 1 cm nodule in left lung apex, indeterminate in nature, PET scan or biopsy should be performed or a follow-up chest CT in 3 months follow up with PCP Chronic stable diagnoses: depression/anxiety - no medical management VTE ppx: SCDs, defer chemical PPx with splenic lac Diet: n.p.o. - reassess in AM 12/01 Dispo: PCU Admission and Anticipated Discharge Date Admission Date: 11/30/24 History of Present Illness Chief Complaint: unresponsive Primary Care Provider: YAEL Edwards Patient is a 64-year-old female with a past medical history of depression/anxiety and hypothyroidism. 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 Patient reported that she was feeling lightheaded and bent over to take out the trash, fell, hit her head. At this point she did not have a loss of consciousness however she stood up and felt dizzy and went to a chair where she synopsized. Patient also stated she has not eaten much for the past week because she is trying to lose weight. Imaging showed possible splenic laceration and concern for right lower lobe aspiration pneumonia. All other diagnostic imaging essentially negative for acute changes. she is being admitted to the PCU for IV antibiotics, echocardiogram, and trending H&H with splenic laceration. Surgical team agreeable. Patient seen at bedside. She explained the story above. She does endorse feeling like she aspirated during the event. She stated she has been trying to lose weight so she has not eating much for the past week. She tries to just drink a Pepsi as a meal. She also endorses a cough x 1 week. She now denies any dizziness, lightheadedness, nausea. She does states she has a mild headache because she hit her head. She denies any abdominal pain. She does endorse sm oking approximately 10 cigarettes/day, declines need for nicotine patch. She denies any other significant past medical history, no DM, HARLAN, COPD/asthma, VTE. She does not use oxygen at baseline. Her only home medication is levothyroxine that she took this morning. She wishes to be full code. Allergies Allergy/AdvReac Type Severity Reaction Status Date / Time Penicillins Allergy Unknown Rash Verified 02/22/24 07:58 Cephalosporins AdvReac Unknown Rash Verified 02/22/24 07:58 Home Medications Medication Instructions Recorded Confirmed Type levothyroxine 125 mcg tablet 125 mcg PO DAILY #30 tabs 11/08/24 11/30/24 Rx Past Med/Surg History Problem List (Updated 11/30/24 @ 22:57 by Margaux Shields PA-C) Lung nodule Carotid artery disease Elevated troponin Aspiration pneumonia Syncope (Acute) Splenic laceration Elevated creatine phosphokinase level Palpitations (Acute) Primary hypothyroidism (Chronic) Elevated blood-pressure reading without diagnosis of hypertension (Acute) Depression (Acute) Chronic low back pain (Acute) Anxiety (Chronic) Medical History Umbilical hernia Hypothyroid Surgical History Status post proximal row carpectomy of wrist History of umbilical hernia repair History of bilateral tubal ligation Family History Father Diabetes Kidney disease Mother Gallbladder disease Hypertension Denies family history of Ovarian cancer Prostate cancer Myocardial infarction Breast cancer Social History Smoking Status: Current every day smoker Tobacco Type: Cigarettes Age Started Using Tobacco: 16; Cigarettes Per Day: 10 cigarettes; Second Hand Exposure: No; Do You Dip or Chew Tobacco: No; Hx Alcohol Use: No Hx Substance Use: No Preferred Language: Citizen Of [place] Communication Ability: Effective Spiral [place] Winder Required: No Beliefs That Will Affect Care: None marital status: Single Current Living Situation: Family Current Living Situation Comment: Daughter current occupational status: employed current occupation: working [employer] How many Children do You have: 1 Feels Safe at Home: Yes Safety Concerns: Feels Safe At This Time Childhood Exposure to Second-Hand Smoke: Yes Diet: regular caffeine: No Dental Care, Regularly: No Physical Activity Frequency: Daily Seatbelt Use: always Sunscreen Use: Yes (sometimes) Assistive Devices: None Review of Systems Review of Systems: See HPI Physical Exam Physical Exam: The patient is awake, alert and oriented 3, pale, sickly appearing. HEENT- EOMI, mucous membranes dry. Hearing grossly intact. Heart-normal S1 and S2. No murmurs, rubs or gallops. Lungs-clear bilaterally, no respiratory distress, no accessory muscle use. Abdomen-normal bowel sounds and soft. No ascites noted. Non-tender. Extremities- no clubbing, cyanosis, or edema. Results & Data Results & Data Vital Signs (Past 12 Hours) Vital Signs Temp Pulse Pulse Resp BP BP Pulse Ox 11/30/24 19:06 65 14 156/75 H 100 11/30/24 17:44 58 L 11/30/24 17:31 113/58 L 11/30/24 17:31 113/58 L 11/30/24 17:29 36 C L 11/30/24 17:23 11/30/24 17:23 59 L 13 101/64 98 11/30/24 17:21 102/71 11/30/24 17:21 102/71 O2 Del Method 11/30/24 19:06 Room Air 11/30/24 17:44 11/30/24 17:31 11/30/24 17:31 11/30/24 17:29 11/30/24 17:23 Room Air 11/30/24 17:23 Room Air 11/30/24 17:21 11/30/24 17:21 Laboratory Results Reviewed CBC, PT/INR, CMP, troponin, mag, TSH Diagnostic Findings reviewed chest CT, AP CT, neck CTA, head CT, head CT, CXR Medications Administered EDZofran 4 Mg IV, NSS 1L bolus AdmissionLR at 80 mL/hour, Unasyn 1.5 Mg IV, magnesium 1G IV, K rider 20 mEq IV ECG Additional Comments: sinus bradycardia, rate 58 Code Status & VTE Plan Code Status full VTE Prophylaxis Plan VTE Prophylaxis will be ordered: Yes Supervising Physician Co-Signing Physician Notes Attending addendum: I have physically seen this patient, have supervised the FARHAN's activities, and agree with the H&P unless as otherwise noted. Assessment and Plan: The patient is a 64-year-old female past medical history including depression/anxiety, hypothyroidism, CAD, depression, anxiety, chronic low back pain. 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 She had been feeling lightheaded, reportedly bent over to pick at the trash, and fell hitting her head. She reports that she initially did not lose consciousness, however, when she stood up and felt dizzy she then went to a chair where she syncopized. Her oral intake has been decreased over the past week she has been intentionally trying to lose weight. CT scan of the abdomen and pelvis showed splenic laceration and concern also for right lower lobe aspiration pneumonia. [facility] for [facility] evaluation and potential treatment. #Syncope- Patient reports that her primary oral intake over the past week, while she has been intentionally trying to lose weight, is drinking Pepsi. CT scan of abdomen and pelvis shows possible splenic laceration, and will need periodic evaluations, and ask surgical input at this time. History of echocardiogram in 2021 with ejection fraction 55-60% Contributing factors including but not limited to: Dehydration, renal insufficiency, potential arrhythmia, pneumonia Right lower lobe aspiration pneumonia- Likely associated with syncopal episode while cleaning at the bank Placed on nasal cannula oxygen, titrate to keep pulse ox around 94% Unasyn 1.5 g IV every 6 hours MRSA swab ordered, and will add coverage if positive Incentive spirometry Aspiration precautions Splenic laceration-CT scan shows linear band within splenic could represent splenic laceration or fracture with minimal amount of perisplenic fluid Surgery been consulted and will follow along giving their support H&H every 6 hours Thyrotoxicosis- TSH less than 0.01 Presently on levothyroxine Hold any further dosing, and recheck laboratories in a.m. Will need continued outpatient follow-up Elevated troponin- Troponin 18.1 admission Follow-up per protocol The patient will be admitted to telemetry for serial cardiac enzymes, serial EKG's, cardiac rhythm monitoring and a 2-D echocardiogram with Dopplers. Vascular studies- CT angiography of neck shows right carotid bulb 40% stenosis, left carotid bulb/proximal left ICA 50% stenosis proximal left subclavian artery 40% stenosis. Patient may follow-up in outpatient setting, not likely causal at this time Remaining orders and notations as noted PG Care Time/CCT Total # of Minutes Spent Total Time Spent with Patient: Total time spent is greater than 50% in coordination of care (as documented) at patient's floor/unit and/or counseling patient: Coding Level of Care Code 64832 INT INP/OBS CARE 3/75MIN Diagnoses Syncope R55 Aspiration pneumonia J69.0 Splenic laceration S36.039A Primary hypothyroidism E03.9 Elevated troponin R79.89 Carotid artery disease I77.9 Lung nodule R91.1
[2024-11-30] MEDS: AMPICILLIN/SULBACTAM SOD 3,000 MG/100 ML BAG IV STA (22:00)
[2024-11-30] MEDS: MAGNESIUM SULFATE / D5W 1 GM/100 ML BAG IV ONE (22:00)
[2024-11-30] MEDS: POTASSIUM CHLORIDE / WTR 10 MEQ/100 ML PLCT IV SCH (22:00)
[2024-11-30] MEDS: LACTATED RINGER'S 1,000 ML IV SCH (22:00)
[2024-11-30 23:40] LABS: Hematocrit (blood only) 38.2 % (37.0-47.0)
[2024-11-30] MEDS ORDERED: ONDANSETRON INJ 2 MG/ML 2 ML VIAL IV PRN (23:58)
[2024-11-30] MEDS ORDERED: ACETAMINOPHEN 1,000 MG/100 ML VIAL IV PRN (23:58)
[2024-12-01] MEDS ORDERED: AMPICILLIN/SULBACTAM SOD 1,500 MG/100 ML BAG IV SCH (02:00)
[2024-12-01] MEDS: AMPICILLIN/SULBACTAM SOD 3,000 MG/100 ML BAG IV SCH (04:26)
[2024-12-01 06:51] LABS: Basophils # (auto) 0.05 K/uL (0.00-0.20); Basophils % (auto) 0.7 %; Eosinophils # (auto) 0.06 K/uL (0.00-0.50); Eosinophils % (auto) 0.9 %; Hematocrit (blood only) 37.5 % (37.0-47.0); Hemoglobin 12.7 g/dl (12.0-16.0); Immature Granulocytes # (auto) 0.03 K/uL (0.01-0.20); Immature Granulocytes % (auto) 0.4 %; Lymphocytes % (auto) 19.1 %; Mean Corpuscular Hemoglobin 31.6 pg (25.0-34.0); Mean Corpuscular Hgb Conc 33.9 g/dL (32.0-36.0); Mean Corpuscular Volume 93.3 fL (80.0-100.0); Mean Platelet Volume 13.5 fL (9.4-12.4); Monocytes # (auto) 0.65 K/uL (0.11-0.59); Monocytes % (auto) 9.5 %; Neutrophils # (auto) 4.73 K/uL (1.40-6.50); Neutrophils % (auto) 69.4 %; Platelet Count 194 K/uL (130-400); RDW Coefficient of Variation 12.4 % (11.5-14.5); RDW Standard Deviation 42.7 fL (36.4-46.3); Red Blood Count 4.02 M/uL (4.20-5.40); White Blood Count 6.82 K/ul (4.8-10.8)
[2024-12-01 07:02] LABS: BUN Creatinine Ratio 18.4 (10-20); Calcium 8.2 mg/dl (8.6-10.3); Chol HDL Ratio 3.9 (0-5); Creatinine Clr Calc Pharmacy 50.5 ml/min; Magnesium 1.8 mg/dl (1.7-2.4); Potassium 4.6 mmol/L (3.5-5.1)
[2024-12-01 07:08] LABS: Troponin I High Sensitivity 21.5 pg/ml (0-14)
--- NOTE | 2024-12-01 09:30 | Surgery Progress Note ---
Date of Service December 01, 2024 Assessment & Plan (1) Splenic laceration: Plan: Her CT images and results were personally viewed and interpreted by myself She does have what appears to be a small splenic laceration with minimal perisplenic fluid She has no abdominal pain and her hemoglobin has been stable since yesterday Would advance her diet as tolerated As long as she tolerates her diet and continues without abdominal pain, she could be discharged later today from a surgical standpoint Surgery will sign off at this time, please call with any questions or concerns Admission and Anticipated Discharge Date Admission Date: November 30, 2024 Subjective Patient seen and examined. Denies abdominal pain. Afebrile. No nausea or vomiting. Review of Systems Constitutional: no fever and no chills Eyes: no blind spots and no worsening vision Ear, Nose, Mouth, Throat: no ear pain and no hearing loss Respiratory: no cough and no dyspnea Cardiovascular: no chest pain and no dyspnea on exertion Gastrointestinal: no abdominal pain, no nausea and no vomiting Genitourinary: no dysuria and no urinary urgency Psychiatric: no behavioral changes and no depression Physical Exam Constitutional: WD/WN, vitals as above ENMT: external ear and nose normal, oropharynx normal Respiratory: normal respiratory effort, lungs clear to auscultation Cardiovascular: RRR, no murmur, no edema Gastrointestinal (Abdomen): Inspection/Auscultation: abdomen normal to inspection; abdomen not distended Percussion/Palpation: abdomen soft; abdomen nontender and no guarding Musculoskeletal: no cyanosis or clubbing, extremities motor strength 5/5 Skin: no rashes, warm and dry Psychiatric: A+Ox3, euthymic affect Results & Data Vital Signs (Past 12 Hours) Vital Signs Temp Pulse Pulse Resp BP BP Pulse Ox 12/01/24 07:00 36.6 C 67 20 116/72 96 12/01/24 03:31 36.7 C 66 18 141/77 H 95 12/01/24 02:10 68 12/01/24 02:01 36.8 C 76 16 154/85 H 94 12/01/24 01:55 12/01/24 00:06 66 17 98 11/30/24 23:00 71 18 130/66 99 O2 Del Method O2 Flow Rate 12/01/24 07:00 Room Air 12/01/24 03:31 Room Air 12/01/24 02:10 12/01/24 02:01 Room Air 12/01/24 01:55 Room Air 12/01/24 00:06 Nasal Cannula 2 11/30/24 23:00 Room Air PG Care Time/CCT Total # of Minutes Spent Total Time Spent with Patient: Total time spent is greater than 50% in coordination of care (as documented) at patient's floor/unit and/or counseling patient: Coding Level of Care Code 04109 SUB INP/OBS CARE 2/35MIN Diagnoses Splenic laceration S36.039A
[2024-12-01 11:59] LABS: Hemoglobin 12.6 g/dl (12.0-16.0)
--- NOTE | 2024-12-01 12:43 | XCELERA ---
[id number]
--- NOTE | 2024-12-01 14:12 | Electrocardiogram Report ---
Test Reason : Blood Pressure : */* mmHG Vent. Rate : 58 BPM Atrial Rate : 58 BPM P-R Int : 162 ms QRS Dur : 90 ms QT Int : 458 ms P-R-T Axes : 70 48 38 degrees QTcB Int : 449 ms Sinus bradycardia Inferior infarct , age undetermined Abnormal ECG When compared with ECG of 21-May-2022 07:23, Aberrant conduction is no longer Present Nonspecific T wave abnormality now evident in Inferior leads Confirmed by Carlos Enrique Membreno ([id number]) on 12/01/2024 2:11:40 PM Referred By: Confirmed By: Carlos Enrique Membreno
--- NOTE | 2024-12-01 17:44 | Hospitalist Progress Note ---
Date of Service December 01, 2024 Assessment & Plan (1) Syncope: (2) Aspiration pneumonia: (3) Splenic laceration: (4) Primary hypothyroidism: (5) Elevated troponin: (6) Carotid artery disease: (7) Lung nodule: Plan Patient is a 64-year-old female with a past medical history of dep ression/anxiety and hypothyroidism. She presented to the ED via EMS after being [place] unresponsive at the [place] in which she is a [employer]. Patient reported that she was feeling lightheaded and bent over to take out the trash, fell, hit her head. At this point she did not have a loss of consciousness however she stood up and felt dizzy and went to a chair where she synopsized. Patient also stated she has not eaten much for the past week because she is trying to lose weight. Imaging showed possible splenic laceration and concern for right lower lobe aspiration pneumonia. All other diagnostic imaging essentially negative for acute changes. she is being admitted to the PCU for IV antibiotics, echocardiogram, and trending H&H with splenic laceration. Surgical team agreeable. #syncope Suspect component of dehydration/starvation as patient reports only drinking Pepsi for the past week in sinus bradycardia on arrival to ED, rate [address] showed splenic laceration as below, CXR showed pneumonia as below, otherwise imaging negative for acute changes of note patient appeared to have an event monitor in 2021, patient does not recall, showed PVCs and PACs with dizziness Echocardiogram in 2021 showed EF 55 to 60%, mitral regurg Cr increase 0.98 to 1.24 1L NSS bolus in ED, continue fluid resuscitation with LR at 80 mL/hour x 1 bag Mag 1.7, K+ 3.8 - 1 bag IV mag, 2 bags K rider EKG showed sinus bradycardia, no ischemic changes Echocardiogram ordered trend BMP and mag Tylenol and Zofran as needed monitor on tele #right lower lobe aspiration pneumonia CXR showing right basilar atelectasis or pneumonia and small right pleural effusion, mild left base atelectasis CT shows emphysema, nodule noted below, mild bilateral lung base atelectasis, no effusion no leukocytosis, VSS on 2L NC at time of admission - weaned off coverage with Unasyn 1.5mg q6h MRSA swab neg incentive spirometry oxygen prn for O2 <94%, wean as tolerated aspiration precautions #splenic laceration AP CT shows linear band within spleen that could represent splenic laceration or fracture with minimal amount of perisplenic fluid hemodynamically stable at time of admission trend H&H q6h - decline noted but received IVF #hyperthyroidism/overcorrected hypothyroidism TSH < 0.1, T4 1.89 ( 05/24/24 was becoming borderline overcorrected with TSH 0.011 and T4 1.55) hold levothyroxine repeat TSH with PCP to determine restarted levothyroxine and dosing #elevated troponin Suspect 2/2 demand/stress Troponin 18.1; repeat ordered Monitor on telemetry and echocardiogram ordered for above #carotid artery stenosis mild/ unlikely to have contributed to above Neck CTA showed 40% stenosis right carotid bulb, 50% stenosis left carotid bulb and proximal left ICA, 40% stenosis proximal left subclavian artery lipid panel with am labs #lung nodule is current smoker - 1/2 ppd; declines need for nicotine patch at time of admission chest ct showed emphysema and 1 cm nodule in left lung apex, indeterminate in nature, PET scan or biopsy should be performed or a follow-up chest CT in 3 months follow up with PCP Chronic stable diagnoses: depression/anxiety - no medical management VTE ppx: SCDs, defer chemical PPx with splenic lac Diet: n.p.o. - reassess in AM 12/01 Dispo: PCU Discharge pending PT/OT Eval Admission and Anticipated Discharge Date Admission Date: November 30, 2024 Subjective Patient seen and examined. Denies abdominal pain. Afebrile. No nausea or vomiting. no chest pain or shortness of breath Physical Exam Physical Exam: Resting comfortably Lungs clear to auscultation Heart RRR PA Soft, NT, ND, BS+ Skin no rash Results & Data Results & Data Vital Signs (Past 12 Hours) Vital Signs Temp Pulse Pulse Resp BP Pulse Ox O2 Del Method 12/01/24 15:00 36.6 C 88 20 135/68 96 Room Air 12/01/24 13:01 53 L 12/01/24 11:00 36.7 C 84 18 124/74 98 Room Air 12/01/24 07:00 36.6 C 80 20 119/61 96 Room Air PG Care Time/CCT Total # of Minutes Spent Total Time Spent with Patient: Total time spent is greater than 50% in coordination of care (as documented) at patient's floor/unit and/or counseling patient: Coding Level of Care Code 10434 SUB INP/OBS CARE 235MIN Diagnoses Syncope R55 Aspiration pneumonia J69.0 Splenic laceration S36.039A Primary hypothyroidism E03.9 Elevated troponin R79.89 Carotid artery disease I77.9 Lung nodule R91.1
[2024-12-01 17:56] LABS: Hematocrit (blood only) 36.3 % (37.0-47.0); Hemoglobin 12.4 g/dl (12.0-16.0)
[2024-12-02 00:05] LABS: Hematocrit (blood only) 36.4 % (37.0-47.0); Hemoglobin 12.5 g/dl (12.0-16.0)
[2024-12-02 03:38] VITALS: RESP 16
[2024-12-02 12:21] VITALS: PULSE 66; TEMP 97.5; O2SAT 96
[2024-12-02 15:25] VITALS: BP 130/66
--- NOTE | 2024-12-02 18:02 | Discharge Summary ---
Discharge Summary Date of Service December 02, 2024 Principal Dx & Hospital Course #1 = Principal Diagnosis (1) Syncope: (2) Aspiration pneumonia: (3) Splenic laceration: (4) Primary hypothyroidism: (5) Elevated troponin: (6) Carotid artery disease: (7) Lung nodule: Plan Patient is a 64-year-old female with a past medical history of depression/anxiety and hypothyroidism. 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 Patient reported that she was feeling lightheaded and bent over to take out the trash, fell, hit her head. At this point she did not have a loss of consciousness however she stood up and felt dizzy and went to a chair where she synopsized. Patient also stated she has not eaten much for the past week because she is trying to lose weight. Imaging showed possible splenic laceration and concern for right lower lobe aspiration pneumonia. All other diagnostic imaging essentially negative for acute changes. she is being admitted to the PCU for IV antibiotics, echocardiogram, and trending H&H with splenic laceration. Surgical team agreeable. #syncope - arrhythmia ruled out, negative orthostatic vitals and no recurrence of syncope Suspect component of dehydration/starvation as patient reports only drinking Pepsi for the past week in sinus bradycardia on arrival to ED, rate [address] showed splenic laceration as below, CXR showed pneumonia as below, otherwise imaging negative for acute changes of note patient appeared to have an event monitor in 2021, patient does not recall, showed PVCs and PACs with dizziness Echocardiogram in 2021 showed EF 55 to 60%, mitral regurg Cr increase 0.98 to 1.24 1L NSS bolus in ED, s/p fluid resuscitation with LR at 80 mL/hour x 1 bag Mag 1.7, K+ 3.8 - 1 bag IV mag, 2 bags K rider EKG showed sinus bradycardia, no ischemic changes #right lower lobe aspiration pneumonia CXR showing right basilar atelectasis or pneumonia and small right pleural effusion, mild left base atelectasis CT shows emphysema, nodule noted below, mild bilateral lung base atelectasis, no effusion no leukocytosis, VSS on 2L NC at time of admission - weaned off coverage with Unasyn 1.5mg q6h - transitioned PO Augmentin at discharge MRSA swab neg incentive spirometry aspiration precautions #splenic laceration - no abdominal pain AP CT shows linear band within spleen that could represent splenic laceration or fracture with minimal amount of perisplenic fluid hemodynamically stable at time of admission H and H stable after initial small decline sec to IVF #hyperthyroidism/overcorrected hypothyroidism TSH < 0.1, T4 1.89 ( 05/24/24 was becoming borderline overcorrected with TSH 0.011 and T4 1.55) Decreased levothyroxine dose from 125mcg to 100mcg repeat TSH with PCP #elevated troponin Suspect 2/2 demand/stress No ACS #carotid artery stenosis mild/ unlikely to have contributed to above Neck CTA showed 40% stenosis right carotid bulb, 50% stenosis left carotid bulb and proximal left ICA, 40% stenosis proximal left subclavian artery lipid panel with am labs #lung nodule is current smoker - 1/2 ppd; declines need for nicotine patch at time of admis romaine chest ct showed emphysema and 1 cm nodule in left lung apex, indeterminate in nature, PET scan or biopsy should be performed or a follow-up chest CT in 3 months follow up with PCP Provided with script for outpatient PET scan / d/w patient Chronic stable diagnoses: depression/anxiety - no medical management Discharged home Admission HPI Per Admitting Provider Patient is a 64-year-old female with a past medical history of depression/anxiety and hypothyroidism. 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 Patient reported that she was feeling lightheaded and bent over to take out the trash, fell, hit her head. At this point she did not have a loss of consciousness however she stood up and felt dizzy and went to a chair where she synopsized. Patient also stated she has not eaten much for the past week because she is trying to lose weight. Imaging showed possible splenic laceration and concern for right lower lobe aspiration pneumonia. All other diagnostic imaging essentially negative for acute changes. she is being admitted to the PCU for IV antibiotics, echocardiogram, and trending H&H with splenic laceration. Surgical team agreeable. Patient seen at bedside. She explained the story above. She does endorse feeling like she aspirated during the event. She stated she has been trying to lose weight so she has not eating much for the past week. She tries to just drink a Pepsi as a meal. She also endorses a cough x 1 week. She now denies any dizziness, lightheadedness, nausea. She does states she has a mild headache because she hit her head. She denies any abdominal pain. She does endorse smoking approximately 10 cigarettes/day, declines need for nicotine patch. She denies any other significant past medical history, no DM, HARLAN, COPD/asthma, VTE. She does not use oxygen at baseline. Her only home medication is levothyroxine that she took this morning. She wishes to be full code. Discharge Exam Resting comfortably Lungs clear to auscultation Heart RRR PA Soft, NT, ND, BS+ Skin no rash Discharge Plan Discharge Items Patient Disposition: Home - Self-Care Reason For Visit: SYNCOPE, SPENIC LACERATION, ASPIRATION PNEUMONIA Discharge Diagnosis: Aspiration pneumonia Activity: Resume your previous activity Non-emergency contact: Primary Care Provider Call non-emergency contact if: you have any medication questions and your symptoms worsen Follow-up/Referrals: Mary Valdes CRNP [Primary Care Provider] - 12/11/24 10:30 am Diet: Regular Addtl Attending Provider Instructions: Follow up with primary care physician in 5-7 days You have a 1cm lung nodule - for further evaluation to rule out cancer have PET scan. Your thyroid medication dose has been decreased - have follow up blood work with your primary care Pending Studies at Discharge: Yes Studies:: PET SCAN FOR LEFT LUNG NODULE, THYROID FUNCTION TESTS IN 3-4 WEEKS Stand-Alone Forms: [employer], Smoking Cessation Medications and DC Order Prescriptions: New amoxicillin-pot clavulanate 875-125 mg tablet 1 tab PO BID Qty: 10 0RF levothyroxine 100 mcg tablet 100 mcg PO DAILY Qty: 30 0RF Discontinued levothyroxine 125 mcg tablet 125 mcg PO DAILY Qty: 30 0RF Rx Instructions: please check thyroid blood workfor further refills Discharge Orders: Discharge Order (Routine); Ordered 12/02/24 Ordered By: Poppy Schneider Admission Data Admit Date/Time: 11/30/24 21:30 Attending Provider: Poppy Schneider Admit Provider: Dwight Cavazos Primary Care Provider: Mary Valdes Other Providers: Dwight Cavazos; Martin Manriquez Other Interventions: Discharge Summary Assessment (RN) Last Done: 12/02/24 15:24 Hospital Stay Data Consultations 11/30/24 19:26 ED Decision to Admit Stat 11/30/24 20:18 Consult General Surgery Routine Diagnostic Imagining Performed 11/30/24 17:23 CT angio head w con Stat CT angio neck with con Stat CT head/brain wo con Stat 11/30/24 17:51 CT Abd and Pelvis [CT abd pelvis IV con only] Stat CT chest diagnostic w con Stat Pending Results Patient Have Any Pending Studies at Discharge: Yes Discharge Instructions Given to Patient (Per Discharging Provider) Follow up with primary care physician in 5-7 days You have a 1cm lung nodule - for further evaluation to rule out cancer have PET scan. Your thyroid medication dose has been decreased - have follow up blood work with your primary care Total Time Total Time Spent Total Time Spent (In Minutes): 40min Coding Level of Care Code 01101 INP/OBS DISCH >30 MIN Diagnoses Syncope R55 Aspiration pneumonia J69.0 Splenic laceration S36.039A Primary hypothyroidism E03.9 Elevated troponin R79.89 Carotid artery disease I77.9 Lung nodule R91.1
== END 2024-12-02 15:24 | disposition home or self-care (01) | DRG 178 ==
LOC: ED 17:21 → SUATTDRO 21:30 → EDINP 21:30 → 2E 23:59